=== PATIENT | female | born 1945 | race African-American/Black ===

== ENCOUNTER 2017-06-05 20:17 | Emergency (ER) | payer MEDICARE, SELFPAY ==
[2017-06-05] MEDS ORDERED: Ibuprofen 800 MG TAB ONE (21:27)
== END 2017-06-05 22:29 | disposition home or self-care (01) ==
LOC: ERS 20:17
DX: J06.9 Acute upper respiratory infection, unspecified (principal); I10 Essential (primary) hypertension; G43.909 Migraine, unspecified, not intractable, without status migrainosus
CPT/HCPCS: 87081; 87430; 99283

== ENCOUNTER 2017-10-02 14:23 | Emergency (ER) | payer SELFPAY ==
--- NOTE | 2017-10-02 15:21 | RAD ---
RIGHT FEMUR 2 VIEWS: HISTORY: Fall. Right leg injury. FINDINGS: Osteoarthritis right hip. No acute fracture, dislocation, or aggressive osseous erosions. IMPRESSION: Right hip osteoarthritis. No acute osseous abnormalities are demonstrated. POS: VANNESA
== END 2017-10-02 15:21 | disposition home or self-care (01) ==
LOC: ERS 14:23
DX: S70.11XA Contusion of right thigh, initial encounter (principal); I10 Essential (primary) hypertension; G43.909 Migraine, unspecified, not intractable, without status migrainosus; Z79.82 Long term (current) use of aspirin; W18.30XA Fall on same level, unspecified, initial encounter; Y93.01 Activity, walking, marching and hiking

== ENCOUNTER 2017-10-04 11:38 | Emergency (ER) | payer MEDICARE, SELFPAY ==
[2017-10-04 12:01] LABS: #Basophils 0.1 thou/uL (0.0-0.2); #Eosinphils 0.1 thou/uL (0.0-0.7); #Lymphocytes 1.6 thou/uL (1.20-3.40); #Monocytes 0.5 thou/uL (0.11-0.59); #Neutrophils 2.6 thou/uL (1.40-6.50); %Basophils 1.9 % (0.0-1.0); %Eosinophils 1.9 % (0.0-10.0); %Lymphocytes 32.5 % (21.0-51.0); %Monocytes 9.7 % (0.0-10.0); %Neutrophils 53.9 % (42.0-75.0); Hemoglobin 11.5 g/dL (12.0-16.0); Mean Corpuscular HGB CONC 32.3 g/dL (32.0-36.0); Mean Corpuscular Hemoglobin 29.5 pg (27.0-31.0); Mean Corpuscular Volume 91.4 fl (81.0-99.0); Mean Platelet Volume 8.8 fL (7.4-10.4); Platelet Count 217 thou/uL (130-400); RBC Distribution Width 11.6 % (11.5-14.5); Red Blood Cell (RBC) Count 3.91 mill/uL (4.20-5.40); White Blood Cell (WBC) Count 4.9 thou/uL (4.8-10.8)
[2017-10-04] MEDS ORDERED: Ketorolac Tromethamine 60 MG/2 ML VIAL ONE (12:05)
[2017-10-04 12:29] LABS: ALT (SGPT) 9 U/L (8-55); AST (SGOT) 19 U/L (5-34); Albumin 3.9 g/dL (3.4-4.8); Alkaline Phosphatase 97 U/L (40-150); Anion Gap 10 mmol/L (10-20); BUN (Urea Nitrogen) 16 mg/dL (9.8-20.1); Bilirubin, Total 0.3 mg/dL (0.2-1.2); Calc. Creatinine Clearance 0 mL/min (70-130); Calcium 8.8 mg/dL (7.8-10.44); Carbon Dioxide 24 mmol/L (23-31); Chloride 109 mmol/L (98-107); Estimated GFR-MDRD 50; Globulin 3.4 g/dL (2.4-3.5); Glucose 89 mg/dL (80-115); Potassium 4.1 mmol/L (3.5-5.1); Protein, Total 7.3 g/dL (6.0-8.3); Sodium 139 mmol/L (136-145)
[2017-10-04 13:02] LABS: Bilirubin Negative (Negative); Blood, Urine Negative (Negative); Clarity CLOUDY (Clear); Glucose, Urine (Dipstick) Negative (Negative); Leukocyte Large (Negative); Nitrite Negative (Negative); Protein, Urine (Dipstick) Trace mg/dL (Neg-Trace); Specific Gravity, Urine 1.013 (1.002-1.036)
[2017-10-04 13:04] LABS: Bacteria/HPF 1+ HPF (None Seen); Hyaline Casts/LPF 0-3 HYALINE CAST LPF (0-3 Hyaline); Pathc Cast-AUWi Flag 1.01 (0-2.49); RBC/HPF 0-3 HPF (0-3)
== END 2017-10-04 13:25 | disposition home or self-care (01) ==
LOC: ERS 11:38
DX: N39.0 Urinary tract infection, site not specified (principal); I10 Essential (primary) hypertension; G43.909 Migraine, unspecified, not intractable, without status migrainosus; Z79.82 Long term (current) use of aspirin
CPT/HCPCS: 36415; 80053; 81003; 81015; 85025; 87086; 96372; J1885

== ENCOUNTER 2018-08-04 15:50 | Emergency (ER) | payer MEDICARE | END 2018-08-04 16:10 | disposition left against medical advice (07) | LOC: ERS 15:50 | DX: Z53.21 Procedure and treatment not carried out due to patient leaving prior to being seen by health care provider (principal) ==

== ENCOUNTER 2019-04-18 14:02 | Emergency (ER) | payer MEDICARE ==
[2019-04-18 15:35] LABS: Bilirubin Negative (Negative); Blood, Urine Negative (Negative); Clarity Clear (Clear); Glucose, Urine (Dipstick) Normal (Negative); Leukocyte 500 Leu/uL (Negative); Nitrite Negative (Negative); Protein, Urine (Dipstick) 30 mg/dL (Neg-Trace); RBC/HPF 0-3 HPF (0-3); Urobilinogen Normal mg/dL (Less than 2)
[2019-04-18 15:37] LABS: Bacteria/HPF 1+ HPF (None Seen)
--- NOTE | 2019-04-18 15:45 | RAD ---
XR Chest Pa Lat STANDARD HISTORY: Cough. COMPARISON: 05/11/2015 study. FINDINGS: Heart size and mediastinum are within normal limits. There is evidence of old granulomatous disease. There are arthritic changes of the spine and a mild scoliosis. IMPRESSION: No active intrathoracic disease.
[2019-04-18] MEDS ORDERED: Lidocaine Viscous Sol 2% 15 ml UD Cup ONE (16:05)
[2019-04-18] MEDS ORDERED: Mag-Al 1200 mg/1200 mg/30 ML UDCUP ONE (16:05)
[2019-04-18] MEDS ORDERED: Ondansetron PF 4 MG/2 ML Vial ONE (16:05)
[2019-04-18 16:41] LABS: Anion Gap 16 mmol/L (10-20); BUN (Urea Nitrogen) 22 mg/dL (9.8-20.1); Calc. Creatinine Clearance 0 mL/min (70-130); Calcium 8.8 mg/dL (7.8-10.44); Carbon Dioxide 21 mmol/L (23-31); Chloride 109 mmol/L (98-107); Estimated GFR-MDRD 35; Glucose 91 mg/dL (83-110); Potassium 4.4 mmol/L (3.5-5.1); Sodium 142 mmol/L (136-145)
[2019-04-18 16:49] LABS: Eosinophils 2 % (0-10); Hemoglobin 10.4 g/dL (12.0-16.0); Lymphocytes 18 % (21-51); MDiff Complete? YES; Mean Corpuscular HGB CONC 33.7 g/dL (32.0-36.0); Mean Corpuscular Hemoglobin 29.7 pg (27.0-31.0); Mean Corpuscular Volume 88.3 fL (78.0-98.0); Mean Platelet Volume 9.2 fL (7.4-10.4); Monocytes 8 % (0-10); Neutrophil 72 % (42-75); Platelet Count 246 thou/uL (130-400); Platelet Morphology Comment Appears Adequate; RBC Morphology Normal; Red Blood Cell (RBC) Count 3.49 mill/uL (4.20-5.40); Vacuoles SLIGHT; White Blood Cell (WBC) Count 6.9 thou/uL (4.8-10.8)
== END 2019-04-18 17:55 | disposition home or self-care (01) ==
LOC: ERS 14:02
DX: N39.0 Urinary tract infection, site not specified (principal); R11.2 Nausea with vomiting, unspecified; I10 Essential (primary) hypertension; G43.909 Migraine, unspecified, not intractable, without status migrainosus; Z79.899 Other long term (current) drug therapy
CPT/HCPCS: 71046; 80048; 81003; 81015; 85025; 93005; 96374; J2405

== ENCOUNTER 2019-04-29 14:08 | Emergency (ER) | payer MEDICARE ==
[2019-04-29 15:05] LABS: ALT (SGPT) 21 U/L (8-55); AST (SGOT) 21 U/L (5-34); Albumin 4.1 g/dL (3.4-4.8); Alkaline Phosphatase 85 U/L (40-110); Anion Gap 19 mmol/L (10-20); BUN (Urea Nitrogen) 27 mg/dL (9.8-20.1); Bilirubin, Total 0.3 mg/dL (0.2-1.2); CK (CPK) 44 U/L (29-168); Calc. Creatinine Clearance 0 mL/min (70-130); Calcium 9.2 mg/dL (7.8-10.44); Carbon Dioxide 20 mmol/L (23-31); Chloride 107 mmol/L (98-107); Estimated GFR-MDRD 22; Globulin 3.4 g/dL (2.4-3.5); Glucose 109 mg/dL (83-110); Potassium 4.3 mmol/L (3.5-5.1); Protein, Total 7.5 g/dL (6.0-8.3); Sodium 142 mmol/L (136-145)
[2019-04-29 15:06] LABS: #Lymphocytes 1.6 thou/uL (1.20-3.40); #Monocytes 0.8 thou/uL (0.11-0.59); #Neutrophils 5.4 thou/uL (1.40-6.50); %Basophils 0.3 % (0.0-1.0); %Eosinophils 0.3 % (0.0-10.0); %Lymphocytes 19.9 % (21.0-51.0); %Monocytes 9.9 % (0.0-10.0); %Neutrophils 69.6 % (42.0-75.0); Hemoglobin 11.3 g/dL (12.0-16.0); Mean Corpuscular HGB CONC 32.7 g/dL (32.0-36.0); Mean Corpuscular Volume 88.6 fL (78.0-98.0); Mean Platelet Volume 9.3 fL (7.4-10.4); Platelet Count 284 thou/uL (130-400); RBC Distribution Width 11.5 % (11.5-14.5); White Blood Cell (WBC) Count 7.8 thou/uL (4.8-10.8)
[2019-04-29] MEDS ORDERED: Fluconazole 100 MG TAB PO SCH (15:30)
== END 2019-04-29 16:13 | disposition home or self-care (01) ==
LOC: ERS 14:08
DX: B37.0 Candidal stomatitis (principal); I10 Essential (primary) hypertension; G43.909 Migraine, unspecified, not intractable, without status migrainosus; Z79.899 Other long term (current) drug therapy
CPT/HCPCS: 36415; 80053; 82550; 84484; 85025; 93005; 96360

== ENCOUNTER 2019-05-07 08:57 | Observation (INO) | payer MEDICARE ==
[2019-05-07 09:50] LABS: #Lymphocytes 1.2 thou/uL (1.20-3.40); #Monocytes 0.5 thou/uL (0.11-0.59); #Neutrophils 5.4 thou/uL (1.40-6.50); %Basophils 0.5 % (0.0-1.0); %Eosinophils 0.4 % (0.0-10.0); %Lymphocytes 16.9 % (21.0-51.0); %Monocytes 7.2 % (0.0-10.0); Hemoglobin 11.1 g/dL (12.0-16.0); Mean Corpuscular HGB CONC 32.7 g/dL (32.0-36.0); Mean Corpuscular Hemoglobin 29.2 pg (27.0-31.0); Mean Corpuscular Volume 89.4 fL (78.0-98.0); Mean Platelet Volume 8.8 fL (7.4-10.4); Platelet Count 255 thou/uL (130-400); RBC Distribution Width 11.3 % (11.5-14.5); White Blood Cell (WBC) Count 7.2 thou/uL (4.8-10.8)
[2019-05-07 10:07] LABS: ALT (SGPT) 79 U/L (8-55); AST (SGOT) 39 U/L (5-34); Albumin 4.1 g/dL (3.4-4.8); Alkaline Phosphatase 97 U/L (40-110); Anion Gap 16 mmol/L (10-20); BUN (Urea Nitrogen) 17 mg/dL (9.8-20.1); Bilirubin, Total 0.4 mg/dL (0.2-1.2); CK (CPK) 47 U/L (29-168); Calc. Creatinine Clearance 0 mL/min (70-130); Calcium 9.5 mg/dL (7.8-10.44); Carbon Dioxide 23 mmol/L (23-31); Chloride 105 mmol/L (98-107); Estimated GFR-MDRD 33; Globulin 3.7 g/dL (2.4-3.5); Glucose 103 mg/dL (83-110); Potassium 3.6 mmol/L (3.5-5.1); Protein, Total 7.8 g/dL (6.0-8.3); Sodium 140 mmol/L (136-145)
[2019-05-07] MEDS ORDERED: Aspirin Chewable 81 MG TAB ONE (10:20)
--- NOTE | 2019-05-07 10:24 | RAD ---
RADIOGRAPH CHEST 1 VIEW: DATE: 05/07/2019 HISTORY: 73-year-old female with hypertension and rash. FINDINGS: There are no air space densities, pulmonary edema, pneumothorax, or cardiomegaly. The lateral costop hrenic angles are sharp. There is a moderate sized calcified granuloma in the right mid lung zone. Calcified right hilar nodes . This combination represents a Ranke complex. No interval change overall since 07/27/2013. IMPRESSION: No acute cardiopulmonary findings. jn [] POS: OFF
[2019-05-07 10:28] LABS: CKMB 0.7 ng/mL (0-6.6)
[2019-05-07] MEDS ORDERED: hydrALAZINE 20 MG/ML VIAL SLOW IVP PRN (12:35)
[2019-05-07] MEDS ORDERED: Acetaminophen 325 MG TAB PO PRN (12:35)
[2019-05-07 12:59] VITALS: BMI 19.5
[2019-05-07 13:43] LABS: Troponin I Less than 0.010 ng/mL (< 0.028)
[2019-05-07 13:57] LABS: Free T4 (Free Thyroxine) 1.38 ng/dL (0.70-1.48)
[2019-05-07 13:59] LABS: HBSAg Index 0.32 S/CO (0-0.99); HIV (1/2) Antibody/Antigen Non-Reactive (NonReactive); HIV 1/2 INDEX 0.11 S/CO (<1.00); Hep A IgM AB Non-Reactive (NonReactive); Hep A IgM S/CO 0.41 S/CO (0-0.79); Hep B Surf Ag Non-Reactive S/CO (NonReactive); Hep C IgG Ab Non-Reactive (NonReactive); Hep C Index 0.16 S/CO (0-0.79); Hepatitis B Core IgM Abs Non-Reactive (NonReactive)
--- NOTE | 2019-05-07 15:09 | HP ---
PRIMARY CARE PHYSICIAN: The patient currently does not have a primary care physician. CHIEF COMPLAINT: "I'm just feeling bad and I've pain in my right shoulder and I just can't get rid of this thrush." HISTORY OF PRESENT ILLNESS: Ms. Jewell is a very pleasant 73-year-old female, who has a history of hypertension. She says that shortly after she stopped working and slightly around that same time, she "just has been" going down. She notices that she has had this thrush for over a month. She denies any burning or pain in her tongue, but she has gone to Urgent Care, a few times has been using nystatin, but it just will not "go away." She also has no appetite to eat. She says she has lost at least 10 pounds over the last few months. She says that when she sees food, she initially gets a bit hungry, but then after a while she does not have an appetite to eat. She says it does not hurt and she does not have any dysphagia. She denies any pain when she eats, but she does have a low-grade nausea both in the morning and in the evening. She says that she has only been able to eat like some fruit and drink juices, but otherwise no other complaints. She denies any change in her bowels. No diarrhea. No loose stools. She denies any fevers or chills. No blood in the stool and no hemoptysis. The patient has an occasional cough, which is productive of some clear sputum. She denies any unusual rash. No hair loss, etc. The patient also complains of pain in her right shoulder. It is worse when she lifts her arm. If she lays her arm flat and does not move it, then she does not have pain. She denies any heavy lifting, no trauma, no falls, etc. REVIEW OF SYSTEMS: All systems were reviewed and are negative except for that mentioned in the History of Present Illness. PAST MEDICAL HISTORY: Significant for hypertension as well as migraines. PAST SURGICAL HISTORY: She has had a hysterectomy. ALLERGIES: TO VALIUM AND SULFA, WHICH MAKES HER SICK. SOCIAL HISTORY: She is . She is a nonsmoker and nondrinker. She denies any drug use. She has 3 daughters and she worked at [employer] for over 40 years and recently quit in this past March. FAMILY HISTORY: Her mother had diabetes as well as heart disease. Dad had an aneurysm. Brother had diabetes and cancer as well as a brother had emphysema as well as heart disease. CURRENT MEDICATIONS: Include nystatin swish and swallow as well as amlodipine 5 mg daily. PHYSICAL EXAMINATION: GENERAL: She is alert and oriented. She does appear chronically fatigued and appears to be chronically ill in appearance. She is well developed and a bit thin. VITAL SIGNS: The blood pressure was 133/69, heart rate 87, respiratory rate of 16, and temperature is 98. HEENT: Her pupils are equal, round, and reactive. Extraocular muscles are intact. Sclerae are anicteric. Throat; she did have some thrush on the tongue, but no erythema at the tongue base. She has poor dentition. No erythema or exudates. NECK: There is no adenopathy. No bruits. LUNGS: Clear to auscultation. There are no wheezing, no rales, no rhonchi. CARDIOVASCULAR: She has a normal S1 and S2. There is no S3 or S4. She did have a grade slight 2/6 systolic murmur at the lower left sternal border radiating into the axilla. ABDOMEN: Soft. She did have some mild epigastric tenderness. There is no rebound, no guarding. No organomegaly. EXTREMITIES: There is no calf tenderness. No joint effusions and no skin lesions that are visible. .NEUROLOGICAL: The exam is grossly nonfocal. LABORATORY RESULTS: Her sodium is 140, potassium 3.6, chloride is 105, CO2 is 23, BUN of 17, creatinine 1.8, glucose is 103, AST is 39, and ALT is 79. Troponin is 0.049. The white blood cell count is 7.2, hemoglobin 11.1, hematocrit is 34, and platelet count is 255. On her chest x-ray, she had a calcified granuloma in the right mid lung field, but otherwise her heart size is normal and there are no infiltrates or effusions. ASSESSMENT AND PLAN: 1. This is a pleasant 73-year-old female, who has a chronically-ill appearance, who complains of what sounds like essentially the dwindles, poor oral intake and shoulder pain as well as weight loss. She will be placed in observation with regard to the shoulder pain. We will get an x-ray of her shoulder. I suspect she may have some mild arthritis there and this can be treated symptomatically. There is no decrease in her range of motion and she had only just some mild crepitus. 2. Weight loss and poor oral intake. Her symptoms are very of vague and likely will need continued workup in the outpatient setting, but while she is here, we will go ahead and get a thyroid panel, ABBIE screen, and double-stranded DNA and a CT scan of her abdomen, noncontrast, giving her renal function and I have recommended that she follow up with her primary care physician and get the colonoscopy that had previously been recommended as well as an esophagogastroduodenoscopy. We will also check her iron studies and hepatitis panel as well as human immunodeficiency virus screen. Otherwise, further recommendations to follow. Job ID: [id number]
--- NOTE | 2019-05-07 15:38 | RAD ---
RADIOGRAPH RIGHT SHOULDER 3 VIEWS: Date: 05/07/2019 HISTORY: 73-year-old female with right shoulder pain. FINDINGS: Shallow chronic cortical defect at lateral aspect of humeral head. No fracture or dislocation. No DJD identified at glenohumeral joint. Mild to moderate DJD at AC joint. IMPRESSION: No acute fracture. POS: OFF
--- NOTE | 2019-05-07 16:26 | CT ---
CT Abdomen Pelvis WO Con 05/07/2019 12:00 AM HISTORY: Abdominal pain and weight loss. Patient reports epigastric abdominal pain and nausea/vomiting COMPARISON: 04/01/2014 Technique: Multiple contiguous axial CT images are obtained through the abdomen and pelvis without IV contrast. Coronal reformats are provided. FINDINGS: This examination is limited for the evaluation of solid organs and vascular structures due to the lac k of intravenous contrast. Lower Chest: within normal limits. Abdomen: Liver: Grossly normal non-enhanced CT appearance. Gallbladder: Within normal limits for CT imaging. Pancreas: Grossly normal nonenhanced CT appearance. Spleen: Granulomata. Adrenals: Grossly normal nonenhanced CT appearance. Kidneys: Again noted is atrophy of the right kidney, but the degree of atrophy has increased when com pared to prior study in 2013. No discrete mass is seen on nonenhanced CT images, but there is a lobulated contour involving the junction of the midportion and inferior pole left kidney posterolater ally which is more conspicuous than on the prior exam. This may represent renal contour in this region, but a lesion cannot be entirely excluded. There is no hydronephrosis or renal calculus seen b ilaterally. Ureters: No ureteral calculus is seen.. Pelvis: Urinary bladder: within normal limits. Reproductive Organs: Evidence of hysterectomy. Lymph Nodes: No enlarged lymph nodes. Bowel: Moderate amount retained fecal material seen throughout the colon. Loops of small bowel are no rmal in caliber Appendix: The appendix is normal in caliber. Peritoneum: No free fluid, free air, or fluid collection. Retroperitoneum: within normal limits. Vessels: Vascular calcifications are seen in the abdominal aorta and involving the iliac arteries.. Abdominal Wall: within normal limits. Bones: Degenerative changes are seen in the lumbar spine. IMPRESSION: 1. Contour abnormality involving the junction of midportion and inferior pole left kidney posterolate rally. This is probably related to the renal contour, but this is different when compared to prior exam and a lesion in this region cannot be entirely excluded. Follow-up renal sonogram is recommended .. 2. Atrophy right kidney, and the degree of atrophy appears mildly increased. 3. No renal or ureteral calculi are seen bilaterally. 4. Constipation. 5. Hysterectomy
[2019-05-07 17:43] LABS: Troponin I Less than 0.010 ng/mL (< 0.028)
[2019-05-07] MEDS ORDERED: Ondansetron PF 4 MG/2 ML Vial IVP PRN (22:14)
[2019-05-07] MEDS ORDERED: Ondansetron ODT 4 MG TAB PO PRN (22:14)
--- NOTE | 2019-05-07 23:53 | CON ---
DATE OF CONSULTATION: HISTORY OF PRESENT ILLNESS: Irma Jewell is a 73-year-old black female, who is admitted with decreased oral intake and weight loss. She has been found to have narrow complex tachycardia while on telemetry with a rate of 140 per minute and 170 per minute. She does state that since her 30s, she has had episodes where she feels her heart beating very rapidly. These episodes last for 1-2 hours at a time. She has continued to have those episodes from her 30s until now. With the 2 episodes today, she was aware of her heart beating rapidly. She denies any chest discomfort or shortness of breath. PAST MEDICAL HISTORY: Hypertension and history of migraines. PAST SURGICAL HISTORY: Hysterectomy. MEDICATIONS: 1. Nystatin for presumed thrush. 2. Amlodipine 5 mg q.a.m. ALLERGIES: VALIUM AND SULFA. SOCIAL HISTORY: She does not smoke or drink. She retired after working 40 years at [employer]. REVIEW OF SYSTEMS: A 10-point review of systems except as noted above is unremarkable 143/63, pulse of 86. HEENT PERRL. NECK: Supple. CHEST: Clear. CARDIAC: S1 and S2 normal without any S3, S4 or murmurs. ABDOMEN: Normal bowel sounds without tenderness or organomegaly. EXTREMITIES: Revealed no clubbing, cyanosis, or edema. NEUROLOGIC: Grossly intact. LABORATORY DATA: EKG revealed normal sinus rhythm, possible left atrial enlargement. Hemoglobin 11.1, hematocrit 34.0, white count 7200, platelets 255, 000. Sodium 140, potassium 3.6, chloride 105, carbon dioxide 23, BUN 17, creatinine 1.81. AST 39, ALT 79. Troponin I 0.049. TSH is low at 0.0043. However, T4 is normal. IMPRESSION: 1. Questionable supraventricular tachycardia vs sinus tachycardia vs atrial tachycardia, which historically sounds as if she has had this since her 30s. 2. Hypertension. 3. Chronic kidney disease. 4. Decreased p.o. intake and weight loss. PLAN: Amlodipine will be discontinued instead she will be placed on Cardizem 180 CD q.a.m. and given 60 mg of Cardizem tonight. Electrophysiology will be consulted. She will also undergo echocardiography. Job ID: [id number] MTDD
[2019-05-08 05:15] LABS: #Lymphocytes 1.4 thou/uL (1.20-3.40); #Monocytes 0.7 thou/uL (0.11-0.59); #Neutrophils 4.7 thou/uL (1.40-6.50); %Basophils 0.2 % (0.0-1.0); %Eosinophils 0.7 % (0.0-10.0); %Lymphocytes 20.7 % (21.0-51.0); %Monocytes 10.7 % (0.0-10.0); %Neutrophils 67.9 % (42.0-75.0); Hemoglobin 9.9 g/dL (12.0-16.0); Mean Corpuscular HGB CONC 32.4 g/dL (32.0-36.0); Mean Corpuscular Volume 89.5 fL (78.0-98.0); Mean Platelet Volume 9.5 fL (7.4-10.4); Platelet Count 225 thou/uL (130-400); RBC Distribution Width 11.5 % (11.5-14.5); White Blood Cell (WBC) Count 6.9 thou/uL (4.8-10.8)
[2019-05-08 05:26] LABS: Anion Gap 12 mmol/L (10-20); BUN (Urea Nitrogen) 17 mg/dL (9.8-20.1); Calc. Creatinine Clearance 25 mL/min (70-130); Calcium 8.8 mg/dL (7.8-10.44); Carbon Dioxide 26 mmol/L (23-31); Chloride 108 mmol/L (98-107); Estimated GFR-MDRD 38; Glucose 100 mg/dL (83-110); Potassium 3.8 mmol/L (3.5-5.1); Sodium 142 mmol/L (136-145)
[2019-05-08 08:15] LABS: Reticulocyte Count 1.2 % (0.5-1.5)
[2019-05-08 08:36] LABS: Iron 42 ug/dL (50-170); Iron Binding Capacity, Total 183 mcg/dL (265-497)
[2019-05-08] MEDS: Enoxaparin Sodium 30 MG/0.3 ML SYRINGE SC SCH (09:17)
[2019-05-08 10:59] LABS: ANA Symphony (Qualitative) Negative (Negative); ANA Symphony (Quantitative) 0.1 Ratio (< 0.7 Negative); dsDNA IgG Antibody 0.6 IU/mL (<10 Negative)
--- NOTE | 2019-05-08 12:43 | PDOC.HOSPP ---
- Subjective Encounter Date: 05/08/19 Encounter Time: 12:42 Subjective: Ms. Jewell was seen today in follow-up of shoulder pain and poor oral intake. She does not have any new complaints. She is about to eat lunch. - Objective Vital Signs & Weight: Vital Signs (12 hours) Temp Pulse Resp BP BP BP BP 05/08/19 11:00 98.6 F 84 16 150/66 H 146/66 H 05/08/19 07:38 98.3 F 75 16 144/63 H 05/08/19 03:35 98.4 F 86 15 143/65 H BP Pulse Ox 05/08/19 11:00 118/58 L 100 05/08/19 07:38 100 05/08/19 03:35 100 Weight Weight 110 lb 9.6 oz I&O: 05/07/19 05/08/19 05/09/19 06:59 06:59 06:59 Intake Total 1160 Balance 1160 Result Diagrams: 05/08/19 04:34 05/08/19 04:34 Hospitalist ROS - Medication Medications: Active Medications Generic Name Dose Route Start Last Admin Trade Name Freq PRN Reason Stop Dose Admin Diltiazem HCl 180 mg 05/08/19 09:00 05/08/19 09:17 Cardizem Cd PO 180 mg DAILY TRACEY Administration Enoxaparin Sodium 30 mg 05/08/19 09:00 05/08/19 09:17 Lovenox SC 30 mg 0900 TRACEY Administration Ondansetron HCl 4 mg 05/07/19 22:14 05/08/19 03:35 Zofran Odt PO 4 mg Q6H PRN Administration Nausea/Vomiting - Exam Eye: PERRL, anicteric sclera Heart: RRR, no murmur, no gallops, no rubs, normal peripheral pulses Respiratory: CTAB, no wheezes, no rales, no ronchi, normal chest expansion, no tachypnea, normal percussion Gastrointestinal: soft, non-tender, non-distended, normal bowel sounds, no palpable masses, no hepatomegaly Extremities: no cyanosis, no clubbing, no edema Hosp A/P (1) Nausea Code(s): R11.0 - NAUSEA Status: Acute (2) Anemia, chronic disease Code(s): D63.8 - ANEMIA IN OTHER CHRONIC DISEASES CLASSIFIED ELSEWHERE Status : Chronic (3) Weight loss Status: Chronic (4) SVT (supraventricular tachycardia) Code(s): I47.1 - SUPRAVENTRICULAR TACHYCARDIA Status: Acute - Plan * Weight loss- ? etiology- CT scan was essentially unremarkable * Will follow-up with the renal ultrasound * I recommend outpatient EGD and Colonoscopy * Follow-up with ABBIE screen as outpatient * Right shoulder pain- likely osteoarthritis * Anemia chronic disease * SVT- continue rate control with Cardizem * Hopefully home this afternoon if she is able to keep food down
--- NOTE | 2019-05-08 13:23 | ULT ---
US Renal Bilateral STANDARD: 05/08/2019 12:42 PM CLINICAL HISTORY: Abnormal left kidney on CT. STUDY: Renal ultrasound COMPARISON: CT abdomen/pelvis 05/07/2019 FINDINGS: Right kidney: Echogenicity: Normal. Masses/cysts: None. Hydronephrosis: None. Calcifications: None. Length: 5.7 cm Left kidney: Echogenicity: Normal. Masses/cysts: None. Hydronephrosis: None. Calcifications: None. Length: 9.4 cm Limited visualization of the urinary bladder is unremarkable. IMPRESSION: Small right kidney. No left renal mass is seen.
[2019-05-08] MEDS ORDERED: Senokot 8.6 MG TAB PO PRN ×2 (20:49→20:50)
[2019-05-09] MEDS: Enoxaparin Sodium 30 MG/0.3 ML SYRINGE SC SCH (08:30)
[2019-05-09 11:53] VITALS: BP 145/65; TEMP 97.4
--- NOTE | 2019-05-09 12:35 | PDOC.HOSPP ---
- Subjective Encounter Date: 05/09/19 Encounter Time: 12:34 Subjective: Ms. Jewell was seen today in follow-up of right shoulder pain, and poor appetite. She has been able to take in the supplements, as well as eat some yogart. No new complaints. - Objective Vital Signs & Weight: Vital Signs (12 hours) Temp Pulse Resp BP BP Pulse Ox 05/09/19 11:36 97.4 F L 89 16 145/65 H 100 05/09/19 10:04 100 05/09/19 07:42 97.8 F 72 16 137/61 100 05/09/19 04:15 98.2 F 86 16 133/63 100 Weight Admit Weight 110 lb 9.6 oz Weight 110 lb 9.6 oz I&O: 05/08/19 05/09/19 05/10/19 06:59 06:59 06:59 Intake Total 1160 1200 417 Balance 1160 1200 417 Result Diagrams: 05/08/19 04:34 05/08/19 04:34 Hospitalist ROS - Medication Medications: Active Medications Generic Name Dose Route Start Last Admin Trade Name Freq PRN Reason Stop Dose Admin Diltiazem HCl 180 mg 05/08/19 09:00 05/09/19 08:30 Cardizem Cd PO 180 mg DAILY TRACEY Administration Enoxaparin Sodium 30 mg 05/08/19 09:00 05/09/19 08:30 Lovenox SC 30 mg 0900 TRACEY Administration Ondansetron HCl 4 mg 05/07/19 22:14 05/08/19 03:35 Zofran Odt PO 4 mg Q6H PRN Administration Nausea/Vomiting Senna 1 tab 05/08/19 20:50 05/08/19 21:11 Senokot PO 1 tab BIDPRN PRN Administration Constipation - Exam Eye: PERRL Heart: RRR, no murmur, no gallops, no rubs, normal peripheral pulses Respiratory: CTAB, no wheezes, no rales, no ronchi, normal chest expansion, no tachypnea, normal percussion Gastrointestinal: soft, non-tender, non-distended, normal bowel sounds, no palpable masses, no hepatomegaly Extremities: no cyanosis, no edema Hosp A/P (1) Nausea Code(s): R11.0 - NAUSEA Status: Acute (2) Anemia, chronic disease Code(s): D63.8 - ANEMIA IN OTHER CHRONIC DISEASES CLASSIFIED ELSEWHERE Status : Chronic (3) Weight loss Status: Chronic (4) SVT (supraventricular tachycardia) Code(s): I47.1 - SUPRAVENTRICULAR TACHYCARDIA Status: Acute - Plan * Weight loss- ? etiology- ABBIE and screen for auto-immune disorders was negative * Renal ultrasound results noted- no evidence of mass * Outpatient EGD and Colonoscopy recommended * SVT- continue rate control with Cardizem * Home later today
--- NOTE | 2019-05-09 13:40 | EKG ---
Test Reason : Blood Pressure : / mmHG Vent. Rate : 087 BPM Atrial Rate : 087 BPM P-R Int : 152 ms QRS Dur : 064 ms QT Int : 348 ms P-R-T Axes : 072 -12 071 degrees QTc Int : 418 ms Normal sinus rhythm Possible Left atrial enlargement Borderline ECG When compared with ECG of 18-APR-2019 15:49, (Unconfirmed) No significant change was found Confirmed by CARLOS PEREZ (2) on 05/09/2019 1:40:25 PM Referred By: SHIVAM Confirmed By:CARLOS PEREZ
--- NOTE | 2019-05-09 14:23 | PDOC.EP ---
- Subjective Date: 05/09/19 Time: 08:00 Interval History: follow up for narrow complex tachycardia patient feeling better with rehydration. Reports occasional palpitations No other cardiac concerns toda - Review of Systems Constitutional: denies: chills, fever, malaise, sweats, weakness Respiratory: denies: cough, shortness of breath, SOB with excertion, sputum, wheezing Cardiology: reports: palpitations. denies: chest pain, edema, light headedness , passing out Gastrointestinal: denies: abdominal pain, constipation, nausea, vomitting - Objective Allergies/Adverse Reactions: Allergies Allergy/AdvReac Type Severity Reaction Status Date / Time diazepam [From Valium] Allergy Verified 05/07/19 12:57 Sulfa (Sulfonamide Allergy Verified 05/07/19 12:57 Antibiotics) Current Medications Acetaminophen (Tylenol) 650 mg PO Q4H PRN PRN Reason: Headache/Fever/Mild Pain (1-3) Diltiazem HCl (Cardizem Cd) 180 mg PO DAILY [facility] Last Admin: 05/09/19 08:30 Dose: 180 mg Enoxaparin Sodium (Lovenox) 30 mg SC 0900 [facility] Last Admin: 05/09/19 08:30 Dose: 30 mg Hydralazine HCl (Apresoline) 10 mg SLOW IVP Q4H PRN PRN Reason: SBP > 180 and HR < 70 Ondansetron HCl (Zofran Odt) 4 mg PO Q6H PRN PRN Reason: Nausea/Vomiting Last Admin: 05/08/19 03:35 Dose: 4 mg Ondansetron HCl (Zofran) 4 mg IVP Q6H PRN PRN Reason: Nausea/Vomiting Senna (Senokot) 1 tab PO BIDPRN PRN PRN Reason: Constipation Last Admin: 05/08/19 21:11 Dose: 1 tab Senna (Senokot) 1 tab PO HSPRN PRN PRN Reason: Constipation Vital Signs & Weight: Vital Signs Temp Pulse Resp BP BP Pulse Ox 05/09/19 11:36 97.4 F L 89 16 145/65 H 100 05/09/19 10:04 100 05/09/19 07:42 97.8 F 72 16 137/61 100 05/09/19 04:15 98.2 F 86 16 133/63 100 Admit Weight 110 lb 9.6 oz Weight 110 lb 9.6 oz I/O: I/O 05/08/19 05/09/19 05/10/19 06:59 06:59 06:59 Intake Total 1160 1200 1257 Balance 1160 1200 1257 - Physical Exam General: alert & oriented x3, appears well, no apparent distress, speech clear, affect appropriate HEENT: mucus membranes moist, normocephaly Neck: supple neck, midline trachea, no JVD/HJR, no lymphadenopathy Cardiology: regular rate and rhythm, no murmur, PMI nondisplaced Lungs: clear to auscultation, normal breath sounds, no wheeze, rales, rhonchi Neurology: cranial nerve 2-12 intact, grossly intact, no lateralizing findings - Labs Result Diagrams: 05/08/19 04:34 05/08/19 04:34 - EKG Interpretation EKG shows: Sinus rhythm - Assessment/Plan Assessment/Plan: 1. Sinus rhythm/sinus tachycardia - less likely A Tach as P wave morphology and HI intervals are unchanged with tachy episodes. - agree with diltiazem for BP and HR management - alternatively BB if edema with CCB OK for DC by EP
--- NOTE | 2019-05-10 01:59 | DIS ---
DATE OF ADMISSION: 05/07/2019 DATE OF DISCHARGE: 05/09/2019 DISCHARGE DISPOSITION: Home. DISCHARGE DIAGNOSES: 1. Weight loss. 2. Chronic nausea. 3. Osteoarthritis of the shoulder. 4. Hypertension. 5. History of migraines. 6. Supraventricular tachycardia. DISCHARGE MEDICATIONS: 1. Cardizem CD 180 mg daily. 2. Nystatin swish and spit. PROCEDURES DONE DURING THE ADMISSION: The patient had a noncontrast CT scan of the abdomen and pelvis, which showed some irregularity of the contour of the left pole of the kidney posteriorly. There is an atrophic right kidney, evidence of hysterectomy as well as constipation. No renal stones seen. The patient had an echocardiogram, in which the ejection fraction was estimated at 55% to 60%. There was some impaired relaxation consistent with diastolic dysfunction and mild mitral regurgitation was present. The patient also had a renal ultrasound showing a small right kidney. There is no left renal mass seen. The patient also had ABBIE as well as [id number] DNA, which were negative. The patient had a hepatitis A, B, and C panel as well as HIV 1 and 2, which were negative. CODE STATUS: Full code. ALLERGIES: TO DIAZEPAM AND SULFA. HOSPITAL COURSE: Ms. Jewell is a pleasant 73-year-old female, who was admitted to the hospital with vague complaints of right shoulder pain, weight loss, and chronic nausea. She was placed in observation to help initiate the workup. CT scan of the abdomen and pelvis was done, which was negative for any obvious mass lesions. I did explain to the patient as well as her daughters, who were at the bedside that she would benefit from having an upper endoscopy as well as a colonoscopy based on her symptomatology, this can be done as an outpatient. She was also found to be anemic, which was most consistent with anemia of chronic disease with a slightly low iron level and a ferritin, which was normal. She had an episode of supraventricular tachycardia in the hospital, this was thought to be related to hypovolemia and dehydration. Her daughter, who is a nurse, said that she had a similar episode with an admission to the ER before. Cardiology as well as EP was consulted based on these findings and she was started on Cardizem to help with rate control. Hepatitis panel was done as well as HIV, which was negative and a screening for autoimmune disorder was also negative. Thyroid function tests were done, which were negative as well as her cardiac enzymes. It is possible that her symptoms could be related to depression at least with regard to her poor oral intake and this was discussed with family members as well. The patient plans to establish primary care physician in the community and will follow up in 1 to 2 weeks. Job ID: [id number]
--- NOTE | 2019-05-10 07:33 | CON ---
DATE OF CONSULTATION: 05/08/2019 Dictated by Jen Hogan PA-C, for Dany Aldana MD. REASON FOR CONSULTATION: Narrow complex tachycardia. HISTORY OF PRESENT ILLNESS: Ms. Jewell is a 73-year-old female, who was admitted with weight loss and decreased p.o. intake with significant dehydration. She is found to be in a narrow complex tachycardia at 140 beats per minute and occasionally up to 170 beats per minute. She endorsed palpitations and tachycardia episodes since her 30s, occasionally up to 1-2 hours at a time. She has been aware of her heart beating rapidly, but denied any associated nausea, vomiting, sweating, or chest pain. She denies any syncopal episodes. REVIEW OF SYSTEMS: Twelve-point review of systems is negative except that listed above in the HPI. PAST MEDICAL HISTORY: 1. Hypertension. 2. Migraines. 3. Palpitations. PAST SURGICAL HISTORY: Hysterectomy. MEDICATIONS: 1. Amlodipine 5 mg q.a.m. 2. Nystatin as directed for possible thrush. ALLERGIES: VALIUM AND SULFA. SOCIAL HISTORY: Denies alcohol, tobacco, or illicit drug use. She is retired after working at [employer] for 40 years. FAMILY HISTORY: Denies sudden cardiac or early-onset CAD. PHYSICAL EXAMINATION: VITAL SIGNS: Temperature 98.6, pulse 75, blood pressure 144/63, respirations 16, and oxygen 100% on room air. Orthostatic blood pressures were assessed and were negative, not significant. GENERAL: The patient is alert and oriented. Speech is clear. Affect is appropriate. She is in no apparent distress at time of the exam, resting comfortably. NECK: Supple without jugular venous distention. There is no lymphadenopathy. Carotids are without bruit. LUNGS: Clear to auscultation bilaterally without wheezes, crackles, or rhonchi. Respirations are even and unlabored. HEART: Rate is irregularly irregular with crisp S1 and S2. PMI is nondisplaced. ABDOMEN: Soft and nontender without palpable masses. EXTREMITIES: Warm and dry to touch without clubbing, cyanosis, or edema. NEUROLOGIC: Grossly intact and nonfocal. Gait was not assessed. DATABASE: Telemetry and EKG showed sinus rhythm with occasional sinus tachycardia. P waves and WA interval are unchanged with her sinus tachycardia episodes compared to her normal sinus rhythm. LABORATORY DATA: Hematology: Unremarkable other than some mild anemia, hemoglobin is 9.9. Chemistry: Creatinine 1.63. Troponins are negative. Magnesium 1.7. TSH 0.0043 and free T4 of 1.38. Echocardiogram on 05/08/2019, EF 55% to 60%, normal-sized left atrium, mild LVH, suggestive of diastolic dysfunction, mild mitral regurgitation. IMPRESSION: 1. Reactive sinus tachycardia, possibly secondary to dehydration with nausea and vomiting, less likely an ectopic atrial tachycardia as P-wave morphology appears unchanged. 2. Dehydration secondary to decreased p.o. intake, nausea, and vomiting. PLAN AND RECOMMENDATIONS: I agree with the change from amlodipine to diltiazem for treating tachycardic episodes. Continue to monitor largely. I suspect she requires rehydration and to maintain adequate rehydration at home. So far, I do not see any telemetry tracings or EKGs that are suggestive of AVNRT or abnormal atrial arrhythmias. Thank you for allowing me to participate in the care of this patient. Job ID: [id number]
--- NOTE | 2019-05-12 14:20 | EKG ---
Test Reason : Blood Pressure : / mmHG Vent. Rate : 082 BPM Atrial Rate : 082 BPM P-R Int : 134 ms QRS Dur : 072 ms QT Int : 368 ms P-R-T Axes : 068 -19 069 degrees QTc Int : 429 ms Normal sinus rhythm Possible Left atrial enlargement Borderline ECG Confirmed by TALITA BRIGHT DO ([id number]), machine stemmer ROSELIA GALLAGHER ([id number]) on 05/12/2019 2:20:20 PM Referred By: Confirmed By:TALITA BRIGHT DO
== END 2019-05-09 15:57 | disposition home or self-care (01) ==
LOC: ERS 08:57 → 2SW 10:54
PROVIDERS: ADMIT Internal Medicine; ATTEND Internal Medicine
DX: M19.011 Primary osteoarthritis, right shoulder (principal); R11.0 Nausea; R63.3 Feeding difficulties; I47.1 Supraventricular tachycardia; E86.0 Dehydration; K59.00 Constipation, unspecified; I12.9 Hypertensive chronic kidney disease with stage 1 through stage 4 chronic kidney disease, or unspecified chronic kidney disease; N18.9 Chronic kidney disease, unspecified; D63.1 Anemia in chronic kidney disease; G43.909 Migraine, unspecified, not intractable, without status migrainosus; B37.0 Candidal stomatitis; R63.4 Abnormal weight loss; Z68.1 Body mass index [BMI] 19.9 or less, adult; Z79.899 Other long term (current) drug therapy; Z88.2 Allergy status to sulfonamides; Z88.8 Allergy status to other drugs, medicaments and biological substances
CPT/HCPCS: 71045; 73030; 74176; 76770; 80048; 80074; 82550; 82553; 82728; 83540; 83550; 83735; 84439; 84484 ×2; 85025; 85046; 86038; 86225; 87389; 93005; 93306; 96360; 96372 ×2; 99285; G0378 ×4; 36415; 80053; 84443; 93010; J1650; Q0162

== ENCOUNTER 2019-05-11 14:34 | Emergency (ER) | payer MEDICARE ==
[2019-05-11] MEDS ORDERED: Lidocaine Viscous Sol 2% 15 ml UD Cup ONE (15:20)
[2019-05-11] MEDS ORDERED: Lidocaine 2% PF 5 ML VIAL ONE (15:21)
[2019-05-11] MEDS ORDERED: Fleet Enema 133 ML BOT PR SCH (17:15)
== END 2019-05-11 19:09 | disposition home or self-care (01) ==
LOC: ERS 14:34
DX: K56.41 Fecal impaction (principal); I10 Essential (primary) hypertension; G43.909 Migraine, unspecified, not intractable, without status migrainosus; Z79.899 Other long term (current) drug therapy
CPT/HCPCS: 99283; J2001

== ENCOUNTER 2019-06-05 16:02 | Emergency (ER) | payer MEDICARE ==
[2019-06-05 17:14] LABS: #Eosinphils 0.1 thou/uL (0.0-0.7); #Lymphocytes 1.1 thou/uL (1.20-3.40); #Monocytes 0.5 thou/uL (0.11-0.59); #Neutrophils 4.8 thou/uL (1.40-6.50); %Basophils 0.2 % (0.0-1.0); %Lymphocytes 17.4 % (21.0-51.0); %Monocytes 7.6 % (0.0-10.0); %Neutrophils 73.8 % (42.0-75.0); Hemoglobin 10.6 g/dL (12.0-16.0); Mean Corpuscular HGB CONC 31.2 g/dL (32.0-36.0); Mean Corpuscular Hemoglobin 28.5 pg (27.0-31.0); Mean Corpuscular Volume 91.4 fL (78.0-98.0); Mean Platelet Volume 8.5 fL (7.4-10.4); Platelet Count 308 thou/uL (130-400); RBC Distribution Width 11.6 % (11.5-14.5); Red Blood Cell (RBC) Count 3.72 mill/uL (4.20-5.40); White Blood Cell (WBC) Count 6.6 thou/uL (4.8-10.8)
[2019-06-05] MEDS ORDERED: Ondansetron PF 4 MG/2 ML Vial ONE (17:28)
[2019-06-05 17:47] LABS: AST (SGOT) 24 U/L (5-34); Anion Gap 15 mmol/L (10-20); Bilirubin, Total 0.3 mg/dL (0.2-1.2); Calcium 9.2 mg/dL (7.8-10.44); Carbon Dioxide 26 mmol/L (23-31); Chloride 105 mmol/L (98-107); Potassium 3.8 mmol/L (3.5-5.1); Sodium 142 mmol/L (136-145)
[2019-06-05 17:52] LABS: ALT (SGPT) 33 U/L (8-55); Albumin 3.8 g/dL (3.4-4.8); Alkaline Phosphatase 94 U/L (40-110); BUN (Urea Nitrogen) 22 mg/dL (9.8-20.1); Calc. Creatinine Clearance 0 mL/min (70-130); Estimated GFR-MDRD 27; Globulin 3.3 g/dL (2.4-3.5); Glucose 113 mg/dL (83-110); Lipase 37 U/L (8-78); Protein, Total 7.1 g/dL (6.0-8.3)
[2019-06-05 18:15] LABS: Bilirubin Negative (Negative); Blood, Urine Negative (Negative); Clarity Clear (Clear); Glucose, Urine (Dipstick) Normal (Negative); Leukocyte 500 Leu/uL (Negative); Nitrite Negative (Negative); Protein, Urine (Dipstick) 30 mg/dL (Neg-Trace); Squamous Epithelial 0-3 HPF (0-3); Urobilinogen Normal mg/dL (Less than 2); WBC/HPF 21-50 HPF (0-3)
--- NOTE | 2019-06-05 18:18 | CT ---
CT OF THE ABDOMEN AND PELVIS WITHOUT IV CONTRAST INDICATION: Left-sided abdominal pain COMPARISON: CT the abdomen and pelvis without contrast dated May 07, 2019 FINDINGS: This examination is limited for the evaluation of solid organs and vascular structures due to the lac k of intravenous contrast. ABDOMEN: Lung bases: Clear Liver: No focal lesion. Gallbladder: Normal appearing. Pancreas: Normal. Adrenal glands: Normal. Spleen: Stable calcified granuloma Kidneys and ureters: Stable atrophy of the right kidney. No hydronephrosis, renal or ureteral calculu s. Vasculature: There are moderate vascular calcifications seen involving the visualized vasculature. Lymph nodes:No lymphadenopathy. Free fluid in abdomen:No free fluid is evident. PELVIS: Small and large bowel: Normal Appendix:Normal Bladder: Normal. Rectal and perirectal soft tissues:Normal. Reproductive structures: Surgically absent Free fluid in pelvis: No free fluid is evident. Lymphadenopathy pelvis: No lymphadenopathy is evident. Osseous structures: No acute osseous abnormality. No destructive osteolytic or osteoblastic lesion i s identified. There is scattered degenerative and osteoarthritic changes. Soft tissues:Normal. IMPRESSION: 1. No acute abnormality.
[2019-06-05 18:23] LABS: Bacteria/HPF 1+ HPF (None Seen)
== END 2019-06-05 19:28 | disposition home or self-care (01) ==
LOC: ERS 16:02
DX: N39.0 Urinary tract infection, site not specified (principal); R11.10 Vomiting, unspecified; I10 Essential (primary) hypertension
CPT/HCPCS: 36415; 74176; 80053; 81003; 81015; 83690; 84484; 85025; 96361; 96374; J2405

== ENCOUNTER 2019-06-11 10:58 | Emergency (ER) | payer MEDICARE ==
[2019-06-11] MEDS ORDERED: Morphine 4 MG/ML VIAL ONE (11:24)
[2019-06-11] MEDS ORDERED: Ondansetron PF 4 MG/2 ML Vial ONE (11:24)
[2019-06-11 11:39] LABS: Hemoglobin 11.7 g/dL (12.0-16.0); Mean Corpuscular HGB CONC 33.4 g/dL (32.0-36.0); Mean Corpuscular Volume 89.8 fL (78.0-98.0); Mean Platelet Volume 9.9 fL (7.4-10.4); Platelet Count 228 thou/uL (130-400); RBC Distribution Width 12.1 % (11.5-14.5); Red Blood Cell (RBC) Count 3.92 mill/uL (4.20-5.40); White Blood Cell (WBC) Count 5.8 thou/uL (4.8-10.8)
[2019-06-11 11:55] LABS: Band 2 % (5-11); Lymphocytes 13 % (21-51); MDiff Complete? YES; Monocytes 1 % (0-10); Neutrophil 84 % (42-75); RBC Morphology Normal
[2019-06-11 12:42] LABS: ALT (SGPT) 23 U/L (8-55); AST (SGOT) 25 U/L (5-34); Albumin 4.1 g/dL (3.4-4.8); Alkaline Phosphatase 94 U/L (40-110); Anion Gap 18 mmol/L (10-20); BUN (Urea Nitrogen) 18 mg/dL (9.8-20.1); Bilirubin, Total 0.5 mg/dL (0.2-1.2); Calc. Creatinine Clearance 0 mL/min (70-130); Calcium 9.8 mg/dL (7.8-10.44); Carbon Dioxide 23 mmol/L (23-31); Chloride 103 mmol/L (98-107); Estimated GFR-MDRD 24; Glucose 111 mg/dL (83-110); Lipase 68 U/L (8-78); Potassium 4.3 mmol/L (3.5-5.1); Protein, Total 8.1 g/dL (6.0-8.3); Sodium 140 mmol/L (136-145)
== END 2019-06-11 13:40 | disposition home or self-care (01) ==
LOC: ERS 10:58
DX: R10.30 Lower abdominal pain, unspecified (principal); R11.2 Nausea with vomiting, unspecified; I10 Essential (primary) hypertension; G43.909 Migraine, unspecified, not intractable, without status migrainosus; Z79.899 Other long term (current) drug therapy
CPT/HCPCS: 36415; 80053; 83690; 84484; 85025; 93005; 96361; 96374; J2270; J2405

== ENCOUNTER 2019-06-13 05:51 | Emergency (ER) | payer MEDICARE ==
[2019-06-13 07:18] LABS: #Basophils 0.1 thou/uL (0.0-0.2); #Eosinphils 0.1 thou/uL (0.0-0.7); #Lymphocytes 1.3 thou/uL (1.20-3.40); #Monocytes 0.6 thou/uL (0.11-0.59); #Neutrophils 3.9 thou/uL (1.40-6.50); %Eosinophils 1.2 % (0.0-10.0); %Lymphocytes 22.6 % (21.0-51.0); %Monocytes 9.5 % (0.0-10.0); %Neutrophils 65.7 % (42.0-75.0); Hemoglobin 10.4 g/dL (12.0-16.0); Mean Corpuscular HGB CONC 32.6 g/dL (32.0-36.0); Mean Corpuscular Hemoglobin 29.8 pg (27.0-31.0); Mean Corpuscular Volume 91.2 fL (78.0-98.0); Mean Platelet Volume 9.3 fL (7.4-10.4); Platelet Count 242 thou/uL (130-400); Red Blood Cell (RBC) Count 3.49 mill/uL (4.20-5.40); White Blood Cell (WBC) Count 5.9 thou/uL (4.8-10.8)
[2019-06-13 07:33] LABS: ALT (SGPT) 19 U/L (8-55); AST (SGOT) 24 U/L (5-34); Albumin 3.8 g/dL (3.4-4.8); Alkaline Phosphatase 82 U/L (40-110); Anion Gap 17 mmol/L (10-20); BUN (Urea Nitrogen) 13 mg/dL (9.8-20.1); Bilirubin, Total 0.5 mg/dL (0.2-1.2); Calc. Creatinine Clearance 0 mL/min (70-130); Calcium 9.4 mg/dL (7.8-10.44); Carbon Dioxide 20 mmol/L (23-31); Chloride 106 mmol/L (98-107); Estimated GFR-MDRD 26; Globulin 3.6 g/dL (2.4-3.5); Glucose 107 mg/dL (83-110); Lipase 46 U/L (8-78); Potassium 3.6 mmol/L (3.5-5.1); Protein, Total 7.4 g/dL (6.0-8.3); Sodium 139 mmol/L (136-145)
--- NOTE | 2019-06-13 08:31 | RAD ---
CHEST 1 VIEW: HISTORY: Cough. COMPARISON: 05/07/2019. FINDINGS: Heart size is normal. Old granulomatous disease. Nodular density is seen over the right lower lung zone favored to be a nipple shadow since it was not present on recent chest film of 05/07/2019. No co nfluent pneumonia, overt edema, or pleural effusion. IMPRESSION: No acute intrathoracic disease. Old granulomatous disease. Right nipple shadow. Atherosclerosis of the aorta. POS: [facility]
[2019-06-13 08:45] LABS: Bilirubin Negative (Negative); Blood, Urine Negative (Negative); Clarity Clear (Clear); Glucose, Urine (Dipstick) Normal (Negative); Leukocyte Negative Leu/uL (Negative); Nitrite Negative (Negative); Protein, Urine (Dipstick) 20 mg/dL (Neg-Trace)
== END 2019-06-13 09:30 | disposition home or self-care (01) ==
LOC: ERS 05:51
DX: I12.9 Hypertensive chronic kidney disease with stage 1 through stage 4 chronic kidney disease, or unspecified chronic kidney disease (principal); N18.9 Chronic kidney disease, unspecified; E86.0 Dehydration; R52 Pain, unspecified; G43.909 Migraine, unspecified, not intractable, without status migrainosus; Z79.899 Other long term (current) drug therapy
CPT/HCPCS: 36415; 71045; 80053; 81003; 83690; 85025; 93005; 96360

== ENCOUNTER 2019-06-15 13:13 | Outpatient (CLI) | payer MEDICARE ==
--- NOTE | 2019-06-15 14:01 | ULT ---
Bilateral renal ultrasound CLINICAL INDICATION: Right renal mass. COMPARISON: Ultrasound on 05/08/[address] abdomen on 06/05/2019 FINDINGS: Right kidney: Small in size with echogenic appearance. Right kidney measures 5.4 cm x 2.8 cm. No hydr onephrosis is seen. No obvious renal mass is identified. Right kidney has an overall stable appearance compared to prior study Left kidney: There is no evidence of a renal mass, renal calculus, or hydronephrosis. The left kidney measures 9.1 cm x 4.6 cm. Urinary bladder: Not imaged. Patient reportedly voided just prior to this exam. IMPRESSION: 1. Stable small echogenic right kidney without hydronephrosis. 2. Normal-appearing left kidney without hydronephrosis. 3. Nonvisualization the urinary bladder.
== END 2019-06-15 13:14 | disposition home or self-care (01) ==
LOC: BICULT 13:13
PROVIDERS: ATTEND Family Medicine
DX: N28.89 Other specified disorders of kidney and ureter (principal); R93.421 Abnormal radiologic findings on diagnostic imaging of right kidney
CPT/HCPCS: 76770

== ENCOUNTER 2019-06-29 08:15 | Emergency (ER) | payer MEDICARE ==
--- NOTE | 2019-06-29 09:05 | RAD ---
CHEST 1 VIEW: Date: 06/29/2019 HISTORY: Altered mental status. COMPARISON: 06/13/2019. FINDINGS: Heart size is normal. Right old granuloma calcifications. No confluent pneumonia, overt edema, or ple ural effusion. IMPRESSION: No acute intrathoracic disease. Stable from prior study. POS: [facility]
--- NOTE | 2019-06-29 09:07 | RAD ---
RIGHT HIP 3 VIEWS: Date: 06/29/2019 HISTORY: Fall. FINDINGS: The pelvic ring is intact without evidence of fracture. There are marked arthritic changes of the rig ht hip. Severe joint space narrowing. Subchondral cystic changes involving the acetabulum and femoral head with some developing flattening to the femoral head suggesting some developing osteonecrosis. T here are no signs of any fracture. IMPRESSION: Marked arthritic changes of the right hip. No evidence of fracture. POS: [facility]
[2019-06-29 09:18] LABS: #Eosinphils 0.1 thou/uL (0.0-0.7); #Monocytes 0.5 thou/uL (0.11-0.59); #Neutrophils 3.7 thou/uL (1.40-6.50); %Basophils 0.5 % (0.0-1.0); %Eosinophils 1.1 % (0.0-10.0); %Lymphocytes 18.9 % (21.0-51.0); %Monocytes 9.7 % (0.0-10.0); %Neutrophils 69.8 % (42.0-75.0); Mean Corpuscular HGB CONC 32.8 g/dL (32.0-36.0); Mean Corpuscular Hemoglobin 30.2 pg (27.0-31.0); Mean Corpuscular Volume 91.9 fL (78.0-98.0); Platelet Count 217 thou/uL (130-400); RBC Distribution Width 12.5 % (11.5-14.5); Red Blood Cell (RBC) Count 3.98 mill/uL (4.20-5.40); White Blood Cell (WBC) Count 5.2 thou/uL (4.8-10.8)
--- NOTE | 2019-06-29 09:19 | CT ---
CT HEAD WITHOUT IV CONTRAST COMPARISON: None HISTORY: Falling secondary to dizziness. Injury after fall. TECHNIQUE: Axial CT imaging at 5 mm intervals from vertex through skull base without contrast FINDINGS: Minimal scattered areas of diminished attenuation are seen in the periventricular and subcortical whi te matter which are nonspecific but likely reflective of mild chronic small vessel ischemic changes. There is no evidence of an acute infarction, hemorrhage, mass effect, or midline shift. Mild cerebral volume loss is present not unexpected for the patient's age. The ventricular system is normal in size, shape, and position. Visualized paranasal sinuses are clear. Osseous structures appear intact.Dense vascular calcifications are seen in the carotid siphons. IMPRESSION: 1. No acute intracranial abnormality demonstrated.
[2019-06-29 09:43] LABS: ALT (SGPT) 12 U/L (8-55); AST (SGOT) 22 U/L (5-34); Albumin 4.1 g/dL (3.4-4.8); Alkaline Phosphatase 71 U/L (40-110); Anion Gap 21 mmol/L (10-20); BUN (Urea Nitrogen) 29 mg/dL (9.8-20.1); Bilirubin, Total 0.5 mg/dL (0.2-1.2); CK (CPK) 54 U/L (29-168); Calc. Creatinine Clearance 0 mL/min (70-130); Calcium 9.6 mg/dL (7.8-10.44); Carbon Dioxide 20 mmol/L (23-31); Chloride 108 mmol/L (98-107); Estimated GFR-MDRD 29; Globulin 3.5 g/dL (2.4-3.5); Glucose 100 mg/dL (83-110); Lipase 58 U/L (8-78); Potassium 4.5 mmol/L (3.5-5.1); Protein, Total 7.6 g/dL (6.0-8.3); Sodium 144 mmol/L (136-145)
[2019-06-29 09:56] LABS: Bilirubin Negative (Negative); Blood, Urine Negative (Negative); Clarity Clear (Clear); Glucose, Urine (Dipstick) Normal (Negative); Leukocyte 250 Leu/uL (Negative); Nitrite Negative (Negative); Protein, Urine (Dipstick) 10 mg/dL (Neg-Trace); RBC/HPF 0-3 HPF (0-3); Urobilinogen Normal mg/dL (Less than 2)
[2019-06-29 10:07] LABS: Bacteria/HPF Rare-Few HPF (None Seen)
== END 2019-06-29 11:21 | disposition home or self-care (01) ==
LOC: ERS 08:15
DX: S70.01XA Contusion of right hip, initial encounter (principal); R42 Dizziness and giddiness; I10 Essential (primary) hypertension; G43.909 Migraine, unspecified, not intractable, without status migrainosus; Z79.899 Other long term (current) drug therapy; W01.198A Fall on same level from slipping, tripping and stumbling with subsequent striking against other object, initial encounter
CPT/HCPCS: 36415; 70450; 71045; 72170; 80053; 81003; 81015; 82550; 83690; 84484; 85025; 93005

== ENCOUNTER 2019-07-02 15:53 | Inpatient (IN) | payer MEDICARE ==
[2019-07-02 16:32] LABS: #Lymphocytes 1.2 thou/uL (1.20-3.40); #Monocytes 0.5 thou/uL (0.11-0.59); #Neutrophils 5.9 thou/uL (1.40-6.50); %Basophils 0.3 % (0.0-1.0); %Eosinophils 0.3 % (0.0-10.0); %Lymphocytes 15.8 % (21.0-51.0); %Monocytes 5.9 % (0.0-10.0); %Neutrophils 77.7 % (42.0-75.0); Hemoglobin 12.5 g/dL (12.0-16.0); Mean Corpuscular HGB CONC 32.8 g/dL (32.0-36.0); Mean Corpuscular Volume 91.6 fL (78.0-98.0); Mean Platelet Volume 10.7 fL (7.4-10.4); Platelet Count 228 thou/uL (130-400); RBC Distribution Width 12.6 % (11.5-14.5); Red Blood Cell (RBC) Count 4.16 mill/uL (4.20-5.40); White Blood Cell (WBC) Count 7.6 thou/uL (4.8-10.8)
[2019-07-02 16:50] LABS: ALT (SGPT) 15 U/L (8-55); AST (SGOT) 22 U/L (5-34); Albumin 4.2 g/dL (3.4-4.8); Alkaline Phosphatase 67 U/L (40-110); Anion Gap 23 mmol/L (10-20); BUN (Urea Nitrogen) 46 mg/dL (9.8-20.1); Bilirubin, Total 0.5 mg/dL (0.2-1.2); Calc. Creatinine Clearance 0 mL/min (70-130); Calcium 10.2 mg/dL (7.8-10.44); Carbon Dioxide 20 mmol/L (23-31); Chloride 108 mmol/L (98-107); Estimated GFR-MDRD 15; Globulin 3.9 g/dL (2.4-3.5); Glucose 104 mg/dL (83-110); Potassium 4.7 mmol/L (3.5-5.1); Protein, Total 8.1 g/dL (6.0-8.3); Sodium 146 mmol/L (136-145)
[2019-07-02 17:12] LABS: CKMB 1.8 ng/mL (0-6.6)
--- NOTE | 2019-07-02 17:26 | RAD ---
EXAM: CHEST ONE VIEW PORTABLE: History: Chest pain, shortness of breath. Comparison: 06-29-2019 FINDINGS: Old granuloma calcification on the right side. No confluent pneumonia, overt edema, or pleural effusi on. Heart size is normal. IMPRESSION: No acute intrathoracic disease. Right sided old granuloma calcification. Atherosclerosis of the aorta . POS: [facility]
[2019-07-02 20:12] LABS: Bilirubin 1+ (Negative); Blood, Urine 1+ (Negative); Clarity Turbid (Clear); Glucose, Urine (Dipstick) Normal (Negative); Leukocyte 75 Leu/uL (Negative); Nitrite Negative (Negative); Protein, Urine (Dipstick) 30 mg/dL (Neg-Trace)
[2019-07-02] MEDS ORDERED: Oseltamivir 75 MG CAP PO SCH (20:15)
[2019-07-02 20:19] LABS: Bacteria/HPF None Seen HPF (None Seen)
[2019-07-02 20:43] LABS: Lactic Acid 2.6 mmol/L (0.5-2.2)
[2019-07-02 20:53] LABS: Troponin I 0.043 ng/mL (< 0.028)
[2019-07-02 22:57] LABS: Troponin I 0.049 ng/mL (< 0.028)
[2019-07-03] MEDS ORDERED: Ondansetron PF 4 MG/2 ML Vial IVP PRN (01:03)
[2019-07-03] MEDS ORDERED: Ondansetron ODT 4 MG TAB PO PRN (01:03)
[2019-07-03] MEDS: Sodium Chloride 0.45% 1,000 ML IV SCH ×2 (01:23→15:05)
[2019-07-03] MEDS ORDERED: Ondansetron PF 4 MG/2 ML Vial ONE (01:54)
[2019-07-03 07:05] LABS: #Lymphocytes 1.4 thou/uL (1.20-3.40); #Monocytes 0.7 thou/uL (0.11-0.59); #Neutrophils 6.2 thou/uL (1.40-6.50); %Basophils 0.2 % (0.0-1.0); %Eosinophils 0.4 % (0.0-10.0); %Lymphocytes 16.3 % (21.0-51.0); %Monocytes 8.6 % (0.0-10.0); %Neutrophils 74.5 % (42.0-75.0)
[2019-07-03 07:20] LABS: Lactic Acid 2.3 mmol/L (0.5-2.2)
[2019-07-03 07:27] LABS: Anion Gap 23 mmol/L (10-20); BUN (Urea Nitrogen) 43 mg/dL (9.8-20.1); Calc. Creatinine Clearance 0 mL/min (70-130); Carbon Dioxide 14 mmol/L (23-31); Chloride 114 mmol/L (98-107); Estimated GFR-MDRD 19; Glucose 89 mg/dL (83-110); Sodium 146 mmol/L (136-145)
[2019-07-03 07:47] LABS: MDiff Complete? YES; Ovalocytes SLIGHT = 2-5 cells (100X) (0-1/hpf); Platelet Morphology Comment Appears Adequate; Polychromasia SLIGHT = 2-3 cells (100X) (0-2/hpf)
[2019-07-03 07:48] LABS: Hemoglobin 11.7 g/dL (12.0-16.0); Mean Corpuscular HGB CONC 31.7 g/dL (32.0-36.0); Mean Corpuscular Hemoglobin 29.5 pg (27.0-31.0); Mean Platelet Volume 10.8 fL (7.4-10.4); Platelet Count 131 thou/uL (130-400); RBC Distribution Width 12.7 % (11.5-14.5); Red Blood Cell (RBC) Count 3.96 mill/uL (4.20-5.40); White Blood Cell (WBC) Count 8.3 thou/uL (4.8-10.8)
[2019-07-03] MEDS ORDERED: Oseltamivir 75 MG CAP PO SCH (09:00)
--- NOTE | 2019-07-03 09:50 | CON ---
DATE OF CONSULTATION: REASON FOR CONSULTATION: Elevated creatinine. HISTORY OF PRESENT ILLNESS: This is a very pleasant 73-year-old female, who presented to the hospital with shortness of breath. The patient had a creatinine of 3.5, which improved to 2.9. Her prior baseline was 2.0 three days ago. Her baseline prior to that had been increasing gradually. The patient denies headache, numbness, tingling, or weakness. Denies any nausea, vomiting, or chest pain. PAST MEDICAL HISTORY: Significant for hypertension, migraines, palpitation, hysterectomy. SOCIOECONOMIC HISTORY: No alcohol or drug abuse. FAMILY HISTORY: Negative for ESRD. ALLERGIES: REVIEWED. MEDICATIONS: Home medications list reviewed. Hospital medications list reviewed. REVIEW OF SYSTEMS: Fifteen-point review of system was performed negative except for positive noted above. HEENT: Eyes intact, no diplopia. Ears: No hearing loss or earache. Nose: No discharge or bleeding. CHEST: No cough or phlegm. ABDOMEN: No nausea or vomiting. GENITOURINARY: No hematuria. No Maloney catheter. MUSCULOSKELETAL: No low back pain. No joint swelling or pain. NEUROLOGICAL: No syncope. No seizures. SKIN: No complaints of rash or itching. PSYCHIATRIC: No depression. CONSTITUTIONAL: No weight loss or loss of appetite. PHYSICAL EXAMINATION: GENERAL: The patient is awake and alert. VITAL SIGNS: Afebrile, pulse 77, breathing at 16, and blood pressure 130/70. HEENT: Head normocephalic and atraumatic. Eyes intact, no ulcers. Nose intact, no ulcers. Ears intact, no ulcers. NECK: Supple. No JVD. CHEST: Symmetrical and clear. CARDIOVASCULAR: Shows S1 and S2, no rub, no murmur. GASTROINTESTINAL: Abdomen is soft, bowel sounds positive. EXTREMITIES: Show no edema or ulcers. SKIN: Shows no rash or petechiae. MUSCULOSKELETAL: Shows no joint swelling or stiffness. GENITOURINARY: Shows no Maloney or CVA tenderness. NEUROLOGIC: Motor intact. Cranial nerves intact. LABORATORY DATA: Labs show creatinine 2.9. ASSESSMENT AND PLAN: 1. Acute kidney injury with chronic kidney disease, most likely due to decreased effective arterial blood volume. Continue gentle hydration. 2. Hyponatremia. Plan fluids with D5 water. Recheck labs today. No urgent indication for dialysis. Job ID: [id number]
[2019-07-03] MEDS ORDERED: cefTRIAXone\\ROCEPHIN 1 GM VIAL ONE (10:32)
[2019-07-03] MEDS: Oseltamivir 75 MG CAP PO SCH (10:35)
[2019-07-03] MEDS: cefTRIAXone\\ROCEPHIN 1 GM in Sodium Chloride 0.9% 100 ML IVPB SCH (10:43)
[2019-07-03] MEDS: Dextrose 5 %-0.45 % NaCl 1,000 ML IV SCH ×2 (11:51→20:11)
--- NOTE | 2019-07-03 13:09 | HP ---
CHIEF COMPLAINT: Generalized weakness. HISTORY OF PRESENT ILLNESS: The patient is a 73-year-old female with past medical history of hypertension, migraine, and chronic kidney disease, who presented to the hospital with complaints of generalized weakness and aching that started 3 days ago. The patient states that she was not able to keep any food or drinks down for this duration. She also endorsed fever and chills, but denied any sick contacts over the last week. In the ER, the patient tested positive for influenza B, and her laboratory studies revealed acute on chronic kidney injury. REVIEW OF SYSTEMS: Negative except as noted in HPI. PAST MEDICAL HISTORY: Hypertension, migraine, and chronic kidney disease. PAST SURGICAL HISTORY: Hysterectomy. SOCIAL HISTORY: Negative for smoking, alcohol use, or illicit drug use. PHYSICAL EXAMINATION: GENERAL: The patient is ill-appearing, alert and oriented x3. HEENT: Head is normocephalic and atraumatic. Extraocular muscles are intact. NECK: Supple. CHEST: Revealed normal S1 and S2. No murmurs, rubs, or gallops. The rate is elevated, and the rhythm is regular. LUNGS: Auscultation is clear bilaterally. ABDOMEN: Slightly tender. Nondistended. Bowel sounds positive. NEUROLOGIC: Revealed normal cranial nerves 2 through 12 and normal motor and sensory examination. LABORATORY DATA: Positive for creatinine level of 2.93, BUN of 43, sodium 146, potassium of 5, chloride of 114, and bicarb of 14. ASSESSMENT: 1. Acute kidney injury on chronic kidney disease. 2. Influenza B infection. 3. Hypertension. 4. Hypernatremia. PLAN: 1. The patient with acute influenza B infection and very poor oral intake causing dehydration and [id number] kidney injury. 2. We will initiate Tamiflu, renally dosed and start IV fluids with D5 half-normal saline at 100 mL/hour and monitor her kidney function over the next 24 to 48 hours. 3. Nephrology consult. 4. UA is showing some signs of infection with positive leukocyte esterase and increased wbc count. We will initiate ceftriaxone as well. Job ID: [id number]
[2019-07-03 14:33] VITALS: BMI 18.9
[2019-07-03] MEDS ORDERED: Fioricet 325/50/40 mg Tablet PO PRN (17:18)
[2019-07-03 18:21] LABS: Anion Gap 17 mmol/L (10-20); BUN (Urea Nitrogen) 36 mg/dL (9.8-20.1); Calc. Creatinine Clearance 15 mL/min (70-130); Calcium 8.8 mg/dL (7.8-10.44); Carbon Dioxide 21 mmol/L (23-31); Chloride 111 mmol/L (98-107); Estimated GFR-MDRD 22; Glucose 135 mg/dL (83-110); Potassium 3.8 mmol/L (3.5-5.1); Sodium 145 mmol/L (136-145)
[2019-07-04 04:38] LABS: Hemoglobin 10.1 g/dL (12.0-16.0); Hypochromia SLIGHT = 6-15 cells (100X) (0-5/hpf); Lymphocytes 9 % (21-51); MDiff Complete? YES; Mean Corpuscular HGB CONC 32.3 g/dL (32.0-36.0); Mean Corpuscular Hemoglobin 29.6 pg (27.0-31.0); Mean Corpuscular Volume 91.6 fL (78.0-98.0); Monocytes 7 % (0-10); Neutrophil 84 % (42-75); Platelet Count 165 thou/uL (130-400); Platelet Morphology Comment Appears Adequate; RBC Distribution Width 12.9 % (11.5-14.5); White Blood Cell (WBC) Count 6.9 thou/uL (4.8-10.8)
[2019-07-04 04:52] LABS: Anion Gap 16 mmol/L (10-20); BUN (Urea Nitrogen) 27 mg/dL (9.8-20.1); Calc. Creatinine Clearance 18 mL/min (70-130); Calcium 8.7 mg/dL (7.8-10.44); Carbon Dioxide 19 mmol/L (23-31); Chloride 111 mmol/L (98-107); Estimated GFR-MDRD 27; Glucose 152 mg/dL (83-110); Potassium 3.6 mmol/L (3.5-5.1); Sodium 142 mmol/L (136-145)
[2019-07-04] MEDS: Dextrose 5 %-0.45 % NaCl 1,000 ML IV SCH ×2 (08:21→16:37)
[2019-07-04] MEDS ORDERED: FLU VACC TS2019-20(65YR UP)/PF 180 MCG/0.5 ML SYRINGE IM ONE (09:00)
[2019-07-04] MEDS: Oseltamivir 75 MG CAP PO SCH (09:04)
[2019-07-04] MEDS: cefTRIAXone\\ROCEPHIN 1 GM in Sodium Chloride 0.9% 100 ML IVPB SCH (09:07)
--- NOTE | 2019-07-04 11:52 | PDOC.HOSPP ---
- Subjective Encounter Date: 07/04/19 Subjective: Complaining of nausea and vomiting - Objective Vital Signs & Weight: Vital Signs (12 hours) Temp Pulse Resp BP Pulse Ox 07/04/19 11:25 98.4 F 96 18 178/76 H 100 07/04/19 10:35 113 H 20 98 07/04/19 07:03 98.2 F 83 18 143/64 H 100 07/04/19 03:16 97.8 F 112 H 20 138/64 100 07/04/19 02:55 98 Weight Weight 107 lb 2.314 oz I&O: 07/03/19 07/04/19 07/05/19 06:59 06:59 06:59 Intake Total 2970 Output Total 750 Balance 2220 Result Diagrams: 07/04/19 03:52 07/04/19 03:52 Hospitalist ROS - Medication Medications: Active Medications Generic Name Dose Route Start Last Admin Trade Name Freq PRN Reason Stop Dose Admin Albuterol/Ipratropium 3 ml 07/03/19 02:30 07/04/19 10:35 Duoneb NEB 3 ml [id number] TRACEY Administration Diltiazem HCl 180 mg 07/03/19 09:00 07/04/19 09:03 Cardizem Cd PO 180 mg DAILY TRACEY Administration Dextrose/Sodium Chloride 1,000 mls @ 100 mls/hr 07/03/19 09:30 07/04/19 08:21 D5 1/2 Ns IV 1,000 mls .Q10H TRACEY Administration Ceftriaxone Sodium 1 gm/ 100 mls @ 200 mls/hr 07/03/19 10:00 07/04/19 09:07 Sodium Chloride IVPB 100 mls Q24HR TRACEY Administration Oseltamivir Phosphate 75 mg 07/03/19 09:00 07/04/19 09:04 Tamiflu PO 07/07/19 09:01 75 mg DAILY TRACEY Administration Sodium Chloride 10 ml 07/03/19 09:00 07/04/19 09:08 Flush - Normal Saline IVF 10 ml Q12HR TRACEY Administration - Exam General Appearance: ill appearing ENT: normocephalic atraumatic Neck: supple, no JVD Heart: RRR Respiratory: CTAB Gastrointestinal: soft, non-tender Extremities: no cyanosis, no clubbing Psychiatric: A&O x 3 Hosp A/P (1) MISHEL (acute kidney injury) Code(s): N17.9 - ACUTE KIDNEY FAILURE, UNSPECIFIED Status: Acute (2) Influenza B Code(s): J10.1 - FLU DUE TO OTH IDENT INFLUENZA VIRUS W OTH RESP MANIFEST Status: Acute - Plan Creatinine is improving. Continue IVF and Tamiflu.
[2019-07-04] MEDS: Ondansetron PF 4 MG/2 ML Vial IVP PRN (11:57)
--- NOTE | 2019-07-04 14:09 | PRG ---
DATE OF SERVICE: 07/04/2019 SUBJECTIVE: This is a 73-year-old female, being seen for acute kidney injury. The patient denies any nausea, vomiting, or chest pain. PHYSICAL EXAMINATION: General: The patient is awake and alert. Vital Signs: Afebrile, pulse 80, breathing at 16, blood pressure 143/64. HEENT: Head normocephalic and atraumatic. Eyes intact, no ulcers. Nose intact, no ulcers. Ears intact, no ulcers. Neck: Supple. No JVD. Chest: Symmetrical and clear. Cardiovascular: Shows S1 and S2, no rub, no murmur. Gastrointestinal: Abdomen is soft, bowel sounds positive. Extremities: Show no edema or ulcers. Skin: Shows no rash or petechiae. Musculoskeletal: Shows no joint swelling or stiffness. Genitourinary: Shows no Maloney or CVA tenderness. Neurologic: Motor intact. Cranial nerves intact. LABORATORY DATA: Labs show hemoglobin 10.1. Creatinine 2.1. ASSESSMENT AND PLAN: 1. Acute kidney injury, improved. 2. Chronic kidney disease, stage 3, stable. 3. Hypertension, stable. 4. Medication based on GFR appropriate. Job ID: [id number]
[2019-07-05] MEDS: Dextrose 5 %-0.45 % NaCl 1,000 ML IV SCH ×3 (04:16→21:34)
[2019-07-05 05:19] LABS: Band 1 % (5-11); Eosinophils 2 % (0-10); Hemoglobin 9.7 g/dL (12.0-16.0); Lymphocytes 13 % (21-51); MDiff Complete? YES; Mean Corpuscular HGB CONC 32.3 g/dL (32.0-36.0); Mean Corpuscular Hemoglobin 29.8 pg (27.0-31.0); Mean Corpuscular Volume 92.3 fL (78.0-98.0); Mean Platelet Volume 11.1 fL (7.4-10.4); Monocytes 7 % (0-10); Neutrophil 77 % (42-75); Platelet Count 131 thou/uL (130-400); Platelet Morphology Comment Appears Adequate; RBC Distribution Width 12.8 % (11.5-14.5); Red Blood Cell (RBC) Count 3.26 mill/uL (4.20-5.40); White Blood Cell (WBC) Count 5.1 thou/uL (4.8-10.8)
[2019-07-05 05:31] LABS: Anion Gap 12 mmol/L (10-20); BUN (Urea Nitrogen) 13 mg/dL (9.8-20.1); Calc. Creatinine Clearance 23 mL/min (70-130); Calcium 8.3 mg/dL (7.8-10.44); Carbon Dioxide 20 mmol/L (23-31); Chloride 110 mmol/L (98-107); Estimated GFR-MDRD 36; Glucose 126 mg/dL (83-110); Potassium 3.3 mmol/L (3.5-5.1); Sodium 139 mmol/L (136-145)
[2019-07-05] MEDS: Ondansetron PF 4 MG/2 ML Vial IVP PRN (08:25)
[2019-07-05] MEDS: Oseltamivir 75 MG CAP PO SCH (11:37)
[2019-07-05] MEDS: cefTRIAXone\\ROCEPHIN 1 GM in Sodium Chloride 0.9% 100 ML IVPB SCH (11:38)
--- NOTE | 2019-07-05 12:43 | PDOC.HOSPP ---
- Subjective Encounter Date: 07/05/19 Subjective: C/O Nausea - Objective Vital Signs & Weight: Vital Signs (12 hours) Temp Pulse Resp BP Pulse Ox 07/05/19 12:04 100 07/05/19 10:53 98.3 F 96 20 175/79 H 100 07/05/19 08:30 98 F 96 15 160/70 H 100 07/05/19 07:33 110 H 20 98 07/05/19 03:44 98.7 F 107 H 18 161/72 H 97 07/05/19 02:37 18 98 Weight Admit Weight 107 lb 2.314 oz Weight 96 lb 1.945 oz I&O: 07/04/19 07/05/19 07/06/19 06:59 06:59 06:59 Intake Total 2970 2000 1253 Output Total 750 500 500 Balance 2220 1500 753 Result Diagrams: 07/05/19 04:34 07/05/19 04:34 Hospitalist ROS - Medication Medications: Active Medications Generic Name Dose Route Start Last Admin Trade Name Freq PRN Reason Stop Dose Admin Albuterol/Ipratropium 3 ml 07/03/19 02:30 07/05/19 07:33 Duoneb NEB 3 ml [id number] TRACEY Administration Diltiazem HCl 180 mg 07/03/19 09:00 07/05/19 11:37 Cardizem Cd PO Not Given DAILY TRACEY Dextrose/Sodium Chloride 1,000 mls @ 100 mls/hr 07/03/19 09:30 07/05/19 04:16 D5 1/2 Ns IV 1,000 mls .Q10H TRACEY Administration Ceftriaxone Sodium 1 gm/ 100 mls @ 200 mls/hr 07/03/19 10:00 07/05/19 11:38 Sodium Chloride IVPB 100 mls Q24HR TRACEY Administration Ondansetron HCl 4 mg 07/04/19 11:50 07/05/19 08:25 Zofran IVP 4 mg Q6H PRN Administration Nausea/Vomiting Oseltamivir Phosphate 75 mg 07/03/19 09:00 07/05/19 11:37 Tamiflu PO 07/07/19 09:01 Not Given DAILY TRACEY Sodium Chloride 10 ml 07/03/19 09:00 07/05/19 08:25 Flush - Normal Saline IVF 10 ml Q12HR TRACEY Administration - Exam General Appearance: NAD ENT: normocephalic atraumatic Neck: supple, no JVD Heart: RRR Respiratory: CTAB, no ronchi Gastrointestinal: soft, non-tender, normal bowel sounds Neurological: cranial nerve grossly intact, no focal deficits Hosp A/P (1) MISHEL (acute kidney injury) Code(s): N17.9 - ACUTE KIDNEY FAILURE, UNSPECIFIED Status: Acute (2) Influenza B Code(s): J10.1 - FLU DUE TO OTH IDENT INFLUENZA VIRUS W OTH RESP MANIFEST Status: Acute - Plan Creatinine is improving. Continue IVF and Tamiflu. Continue IV Ceftriaxone for UTI
--- NOTE | 2019-07-05 12:50 | PRG ---
DATE OF SERVICE: 07/05/2019 SUBJECTIVE: A 73-year-old female, being seen for acute kidney injury. The patient denied any nausea, vomiting, or chest pain. PHYSICAL EXAMINATION: General: The patient is awake and alert. Vital Signs: Afebrile, pulse 75, breathing at 16, blood pressure 160/70. HEENT: Head normocephalic and atraumatic. Eyes intact, no ulcers. Nose intact, no ulcers. Ears intact, no ulcers. Neck: Supple. No JVD. Chest: Symmetrical and clear. Cardiovascular: Shows S1 and S2, no rub, no murmur. Gastrointestinal: Abdomen is soft, bowel sounds positive. Extremities: Show no edema or ulcers. Skin: Shows no rash or petechiae. Musculoskeletal: Shows no joint swelling or stiffness. Genitourinary: Shows no Maloney or CVA tenderness. Neurologic: Motor intact. Cranial nerves intact. LABORATORY DATA: Labs show hemoglobin 9.7. Potassium 3.3 and creatinine 1.7. ASSESSMENT AND PLAN: 1. Acute kidney injury, improved. 2. Hypertension, stable. 3. Anemia, stable. 4. Hypokalemia, recommend potassium replacement. No indication for dialysis. Job ID: [id number]
[2019-07-06] MEDS: Dextrose 5 %-0.45 % NaCl 1,000 ML IV SCH ×2 (05:33→17:33)
[2019-07-06 06:18] LABS: Anion Gap 12 mmol/L (10-20); BUN (Urea Nitrogen) 8 mg/dL (9.8-20.1); Calc. Creatinine Clearance 22 mL/min (70-130); Calcium 7.8 mg/dL (7.8-10.44); Carbon Dioxide 21 mmol/L (23-31); Chloride 108 mmol/L (98-107); Estimated GFR-MDRD 38; Glucose 119 mg/dL (83-110); Sodium 138 mmol/L (136-145)
[2019-07-06 06:24] LABS: Potassium 2.8 mmol/L (3.5-5.1)
[2019-07-06 06:32] LABS: Eosinophils 2 % (0-10); Hemoglobin 9.2 g/dL (12.0-16.0); Lymphocytes 22 % (21-51); MDiff Complete? YES; Mean Corpuscular HGB CONC 32.8 g/dL (32.0-36.0); Mean Corpuscular Hemoglobin 29.6 pg (27.0-31.0); Mean Corpuscular Volume 90.4 fL (78.0-98.0); Mean Platelet Volume 10.9 fL (7.4-10.4); Monocytes 9 % (0-10); Neutrophil 67 % (42-75); Platelet Count 123 thou/uL (130-400); RBC Distribution Width 12.5 % (11.5-14.5); White Blood Cell (WBC) Count 4.7 thou/uL (4.8-10.8)
[2019-07-06] MEDS: cefTRIAXone\\ROCEPHIN 1 GM in Sodium Chloride 0.9% 100 ML IVPB SCH (09:37)
[2019-07-06] MEDS: Oseltamivir 75 MG CAP PO SCH (09:37)
[2019-07-06 11:30] LABS: Anion Gap 14 mmol/L (10-20); BUN (Urea Nitrogen) 7 mg/dL (9.8-20.1); Calc. Creatinine Clearance 22 mL/min (70-130); Calcium 7.8 mg/dL (7.8-10.44); Carbon Dioxide 21 mmol/L (23-31); Chloride 107 mmol/L (98-107); Estimated GFR-MDRD 39; Glucose 115 mg/dL (83-110); Sodium 139 mmol/L (136-145)
[2019-07-06 11:33] LABS: Potassium 2.9 mmol/L (3.5-5.1)
[2019-07-06] MEDS: Potassium Chloride 20 MEQ TAB PO SCH ×2 (12:23→14:32)
--- NOTE | 2019-07-06 12:47 | PRG ---
DATE OF SERVICE: 07/06/2019 SUBJECTIVE: This is a 73-year-old female, being seen for acute kidney injury. The patient denies any nausea, vomiting, or chest pain OBJECTIVE: GENERAL: The patient is awake and alert. VITAL SIGNS: Afebrile, pulse 71, breathing at 16, blood pressure 131/76. HEENT: Head normocephalic and atraumatic. Eyes intact, no ulcers. Nose intact, no ulcers. Ears intact, no ulcers. NECK: Supple. No JVD. CHEST: Symmetrical and clear. CARDIOVASCULAR: Shows S1 and S2, no rub, no murmur. GASTROINTESTINAL: Abdomen is soft, bowel sounds positive. EXTREMITIES: Show no edema or ulcers. SKIN: Shows no rash or petechiae. MUSCULOSKELETAL: Shows no joint swelling or stiffness. GENITOURINARY: Shows no Maloney or CVA tenderness. NEUROLOGIC: Motor intact. Cranial nerves intact. LABORATORY DATA: Reviewed. ASSESSMENT AND PLAN: 1. Stage 3 chronic kidney disease, stable. 2. Acute kidney injury, stable. 3. Hypokalemia. Recommend aggressive potassium replacement as well as magnesium replacement. Please order daily labs, which should include magnesium as well. Job ID: [id number]
--- NOTE | 2019-07-06 15:41 | PDOC.HOSPP ---
- Subjective Encounter Date: 07/06/19 Subjective: Complained of shortness of breath overnight - Objective Vital Signs & Weight: Vital Signs (12 hours) Temp Pulse Resp BP Pulse Ox 07/06/19 15:11 103 H 20 99 07/06/19 12:59 98.3 F 92 18 112/60 07/06/19 10:45 96 21 H 100 07/06/19 08:00 99 07/06/19 07:45 98.7 F 107 H 17 131/67 99 07/06/19 04:11 102 H 16 07/06/19 04:00 98.6 F 107 H 18 143/71 H 99 Weight Admit Weight 107 lb 2.314 oz Weight 96 lb 1.945 oz I&O: 07/05/19 07/06/19 07/07/19 06:59 06:59 06:59 Intake Total 2000 1253 Output Total 500 500 Balance 1500 753 Result Diagrams: 07/06/19 05:39 07/06/19 11:02 Hospitalist ROS - Medication Medications: Active Medications Generic Name Dose Route Start Last Admin Trade Name Freq PRN Reason Stop Dose Admin Albuterol/Ipratropium 3 ml 07/03/19 02:30 07/06/19 15:11 Duoneb NEB 3 ml [id number] TRACEY Administration Diltiazem HCl 180 mg 07/03/19 09:00 07/06/19 09:44 Cardizem Cd PO Not Given DAILY TRACEY Dextrose/Sodium Chloride 1,000 mls @ 100 mls/hr 07/03/19 09:30 07/06/19 05:33 D5 1/2 Ns IV 1,000 mls .Q10H TRACEY Administration Ceftriaxone Sodium 1 gm/ 100 mls @ 200 mls/hr 07/03/19 10:00 07/06/19 09:37 Sodium Chloride IVPB 100 mls Q24HR TRACEY Administration Ondansetron HCl 4 mg 07/04/19 11:50 07/05/19 08:25 Zofran IVP 4 mg Q6H PRN Administration Nausea/Vomiting Oseltamivir Phosphate 75 mg 07/03/19 09:00 07/06/19 09:37 Tamiflu PO 07/07/19 09:01 75 mg DAILY TRACEY Administration Sodium Chloride 10 ml 07/03/19 09:00 07/06/19 09:38 Flush - Normal Saline IVF Not Given Q12HR TRACEY - Exam General Appearance: NAD ENT: normocephalic atraumatic Neck: supple Heart: RRR Respiratory: rhonchi, wheezes Gastrointestinal: soft, non-tender, non-distended, normal bowel sounds Extremities: no cyanosis Neurological: cranial nerve grossly intact Hosp A/P (1) MISHEL (acute kidney injury) Code(s): N17.9 - ACUTE KIDNEY FAILURE, UNSPECIFIED Status: Acute (2) Influenza B Code(s): J10.1 - FLU DUE TO OTH IDENT INFLUENZA VIRUS W OTH RESP MANIFEST Status: Acute (3) Hypokalemia Code(s): E87.6 - HYPOKALEMIA Status: Acute (4) Hypomagnesemia Code(s): E83.42 - HYPOMAGNESEMIA Status: Acute - Plan Creatinine is improving. Continue IVF and Tamiflu. Continue IV Ceftriaxone for UTI Replace K and MAG Start Po Prednisone Likely home tomorrow
[2019-07-06] MEDS ORDERED: Magnesium 2 GM/50 ML 2 GM in Premix Bag 1 BAG IVPB SCH (15:45)
[2019-07-06] MEDS ORDERED: predniSONE 20 MG TAB PO SCH (15:45)
[2019-07-07] MEDS: Dextrose 5 %-0.45 % NaCl 1,000 ML IV SCH ×3 (03:42→19:54)
[2019-07-07 06:39] LABS: Eosinophils 8 % (0-10); Hemoglobin 9.1 g/dL (12.0-16.0); Lymphocytes 23 % (21-51); MDiff Complete? YES; Mean Corpuscular HGB CONC 33.8 g/dL (32.0-36.0); Mean Corpuscular Hemoglobin 30.4 pg (27.0-31.0); Mean Corpuscular Volume 89.8 fL (78.0-98.0); Monocytes 8 % (0-10); Neutrophil 61 % (42-75); Platelet Count 134 thou/uL (130-400); RBC Distribution Width 12.7 % (11.5-14.5); White Blood Cell (WBC) Count 4.8 thou/uL (4.8-10.8)
[2019-07-07 06:51] LABS: Anion Gap 14 mmol/L (10-20); BUN (Urea Nitrogen) 5 mg/dL (9.8-20.1); Calc. Creatinine Clearance 26 mL/min (70-130); Calcium 7.6 mg/dL (7.8-10.44); Carbon Dioxide 20 mmol/L (23-31); Chloride 107 mmol/L (98-107); Estimated GFR-MDRD 46; Glucose 111 mg/dL (83-110); Magnesium 1.4 mg/dL (1.6-2.6); Sodium 138 mmol/L (136-145)
[2019-07-07 06:59] LABS: Potassium 2.9 mmol/L (3.5-5.1)
[2019-07-07] MEDS: Oseltamivir 75 MG CAP PO SCH (08:15)
[2019-07-07] MEDS: predniSONE 20 MG TAB PO SCH (08:15)
[2019-07-07] MEDS ORDERED: Potassium Chloride 10 MEQ in Premix Bag 1 BAG IVPB SCH (08:20)
[2019-07-07] MEDS: cefTRIAXone\\ROCEPHIN 1 GM in Sodium Chloride 0.9% 100 ML IVPB SCH (09:23)
[2019-07-07] MEDS ORDERED: Potassium Chloride 20 MEQ in Premix Bag 1 BAG IVPB SCH ×2 (12:00)
--- NOTE | 2019-07-07 13:58 | PDOC.HOSPP ---
- Subjective Encounter Date: 07/07/19 Subjective: Feels better - Objective Vital Signs & Weight: Vital Signs (12 hours) Temp Pulse Resp BP Pulse Ox 07/07/19 13:44 104 H 16 100 07/07/19 12:11 98.8 F 105 H 16 160/73 H 99 07/07/19 10:09 102 H 16 100 07/07/19 08:23 98.4 F 106 H 16 157/75 H 100 07/07/19 08:00 100 07/07/19 06:43 102 H 16 100 07/07/19 04:00 99.0 F 98 20 124/64 100 Weight Admit Weight 107 lb 2.314 oz Weight 96 lb 1.945 oz I&O: 07/06/19 07/07/19 07/08/19 06:59 06:59 06:59 Intake Total 1253 1200 Output Total 500 Balance 753 1200 Result Diagrams: 07/07/19 06:00 07/07/19 06:00 Hospitalist ROS - Medication Medications: Active Medications Generic Name Dose Route Start Last Admin Trade Name Freq PRN Reason Stop Dose Admin Albuterol/Ipratropium 3 ml 07/03/19 02:30 07/07/19 13:44 Duoneb NEB 3 ml [id number] TRACEY Administration Diltiazem HCl 180 mg 07/03/19 09:00 07/07/19 08:15 Cardizem Cd PO 180 mg DAILY TRACEY Administration Dextrose/Sodium Chloride 1,000 mls @ 100 mls/hr 07/03/19 09:30 07/07/19 03:42 D5 1/2 Ns IV 1,000 mls .Q10H TRACEY Administration Ceftriaxone Sodium 1 gm/ 100 mls @ 200 mls/hr 07/03/19 10:00 07/07/19 09:23 Sodium Chloride IVPB 100 mls Q24HR TRACEY Administration Potassium Chloride 20 meq/ 100 mls @ 50 mls/hr 07/07/19 12:00 07/07/19 12:43 Device IVPB 07/07/19 15:00 100 mls 1200 TRACEY Administration Ondansetron HCl 4 mg 07/04/19 11:50 07/05/19 08:25 Zofran IVP 4 mg Q6H PRN Administration Nausea/Vomiting Prednisone 40 mg 07/07/19 08:00 07/07/19 08:15 Prednisone PO 40 mg QAM-WM TRACEY Administration Sodium Chloride 10 ml 07/03/19 09:00 07/07/19 08:22 Flush - Normal Saline IVF Not Given Q12HR TRACEY - Exam General Appearance: NAD ENT: normocephalic atraumatic Neck: supple, no JVD Heart: RRR, no murmur, no gallops, no rubs Respiratory: CTAB, no wheezes, no rales, no ronchi Gastrointestinal: soft, non-tender, non-distended, normal bowel sounds Hosp A/P (1) MISHEL (acute kidney injury) Code(s): N17.9 - ACUTE KIDNEY FAILURE, UNSPECIFIED Status: Acute (2) Influenza B Code(s): J10.1 - FLU DUE TO OTH IDENT INFLUENZA VIRUS W OTH RESP MANIFEST Status: Acute (3) Hypokalemia Code(s): E87.6 - HYPOKALEMIA Status: Acute (4) Hypomagnesemia Code(s): E83.42 - HYPOMAGNESEMIA Status: Acute - Plan Creatinine is improving. Continue IVF and Tamiflu. Continue IV Ceftriaxone for UTI She was not able to take PO K Replace K and Mag IV Po Prednisone Likely home tomorrow
[2019-07-07] MEDS ORDERED: Magnesium Sulfate 2 GM in Sodium Chloride 0.9% 100 ML IVPB SCH (14:00)
[2019-07-07] MEDS ORDERED: Magnesium 2 GM/50 ML 2 GM in Premix Bag 1 BAG IVPB SCH (14:15)
--- NOTE | 2019-07-08 00:59 | PRG ---
DATE OF SERVICE: 07/07/2019 SUBJECTIVE: A 73-year-old female being seen for acute kidney injury. The patient denies any nausea, vomiting, or chest pain. PHYSICAL EXAMINATION: GENERAL: Patient is awake and alert. VITAL SIGNS: Pulse 75, breathing 16, blood pressure 130/72. HEENT: Head normocephalic and atraumatic. Eyes intact, no ulcers. Nose intact, no ulcers. Ears intact, no ulcers. Neck: Supple. No JVD. Chest: Symmetrical and clear. Cardiovascular: Shows S1 and S2, no rub, no murmur. Gastrointestinal: Abdomen is soft, bowel sounds positive. Extremities: Show no edema or ulcers. Skin: Shows no rash or petechiae. Musculoskeletal: Shows no joint swelling or stiffness. Genitourinary: Shows no Maloney or CVA tenderness. Neurologic: Motor intact. Cranial nerves intact. LABORATORY DATA: Reviewed. Hemoglobin 9.1, creatinine is 1.3. ASSESSMENT: 1. Acute kidney injury. 2. Hypertension with anemia, stable. I will sign off on this patient. 3. Hypomagnesemia. Would recommend aggressive magnesium replacement. 4. Hypokalemia. Would recommend 80 mEq of potassium throughout the day. Job ID: [id number]
[2019-07-08 06:19] LABS: Anion Gap 12 mmol/L (10-20); BUN (Urea Nitrogen) 6 mg/dL (9.8-20.1); Calc. Creatinine Clearance 30 mL/min (70-130); Calcium 7.7 mg/dL (7.8-10.44); Carbon Dioxide 19 mmol/L (23-31); Chloride 109 mmol/L (98-107); Estimated GFR-MDRD 54; Glucose 121 mg/dL (83-110); Potassium 3.8 mmol/L (3.5-5.1); Sodium 136 mmol/L (136-145)
[2019-07-08 08:01] LABS: Hemoglobin 7.7 g/dL (12.0-16.0); Lymphocytes 28 % (21-51); MDiff Complete? YES; Mean Corpuscular HGB CONC 34.1 g/dL (32.0-36.0); Mean Corpuscular Hemoglobin 30.9 pg (27.0-31.0); Mean Corpuscular Volume 90.3 fL (78.0-98.0); Mean Platelet Volume 10.4 fL (7.4-10.4); Monocytes 14 % (0-10); Neutrophil 57 % (42-75); Platelet Count 134 thou/uL (130-400); RBC Distribution Width 12.8 % (11.5-14.5); White Blood Cell (WBC) Count 6.9 thou/uL (4.8-10.8)
[2019-07-08] MEDS: predniSONE 20 MG TAB PO SCH (08:58)
[2019-07-08] MEDS: cefTRIAXone\\ROCEPHIN 1 GM in Sodium Chloride 0.9% 100 ML IVPB SCH (08:59)
[2019-07-08] MEDS: Dextrose 5 %-0.45 % NaCl 1,000 ML IV SCH (10:15)
[2019-07-08 14:50] LABS: Band 1 % (5-11); Eosinophils 2 % (0-10); Lymphocytes 21 % (21-51); MDiff Complete? YES; Mean Corpuscular HGB CONC 33.4 g/dL (32.0-36.0); Mean Corpuscular Hemoglobin 30.4 pg (27.0-31.0); Mean Corpuscular Volume 91.1 fL (78.0-98.0); Monocytes 12 % (0-10); Neutrophil 63 % (42-75); Ovalocytes SLIGHT = 2-5 cells (100X) (0-1/hpf); Platelet Count 145 thou/uL (130-400); Platelet Morphology Comment Appears Adequate; Polychromasia SLIGHT = 2-3 cells (100X) (0-2/hpf); Reactive Lymphocytes 1 % (0-10); Red Blood Cell (RBC) Count 2.96 mill/uL (4.20-5.40); Schistocytes SLIGHT = 2-5 cells (100X) (0-1/hpf); Tear Drops SLIGHT = 2-5 cells (100X) (0-1/hpf); White Blood Cell (WBC) Count 7.3 thou/uL (4.8-10.8)
--- NOTE | 2019-07-08 15:07 | PRG ---
DATE OF SERVICE: 07/08/2019 SUBJECTIVE: A 73-year-old female being seen for acute kidney injury. The patient denied any nausea, vomiting, or chest pain. PHYSICAL EXAMINATION: GENERAL: The patient is awake and alert. VITAL SIGNS: Afebrile, pulse 80, breathing at 16, and blood pressure 156/74. HEENT: Head normocephalic and atraumatic. Eyes intact, no ulcers. Nose intact, no ulcers. Ears intact, no ulcers. NECK: Supple. No JVD. CHEST: Symmetrical and clear. CARDIOVASCULAR: Shows S1 and S2, no rub, no murmur. GASTROINTESTINAL: Abdomen is soft, bowel sounds positive. EXTREMITIES: Show no edema or ulcers. SKIN: Shows no rash or petechiae. MUSCULOSKELETAL: Shows no joint swelling or stiffness. GENITOURINARY: Shows no Maloney or CVA tenderness. NEUROLOGIC: Motor intact. Cranial nerves intact. LABORATORY DATA: Hemoglobin 9. ASSESSMENT AND PLAN: 1. Chronic kidney disease, stage 3, stable. 2. Hypertension, stable. 3. Acute kidney injury, resolved. 4. Metabolic acidosis, stable. 5. I will sign off on this patient. 6. Medication based on GFR appropriate. I will sign off on this patient. Please reconsult as needed. Job ID: [id number]
[2019-07-08 16:30] VITALS: BP 136/60; TEMP 98.3
--- NOTE | 2019-07-09 17:13 | DIS ---
DATE OF ADMISSION: 07/02/2019 DATE OF DISCHARGE: 07/08/2019 DISCHARGE DIAGNOSES: 1. Acute kidney injury. 2. Influenza B. 3. Hypokalemia. 4. Hypomagnesemia. DISCHARGE MEDICATIONS: 1. Amlodipine 5 mg orally daily. 2. Aspirin 81 mg orally daily. 3. Dulcolax 10 mg per rectal daily as needed for constipation. 4. Dicyclomine 20 mg orally 4 times a day as needed for stomach cramp. 5. Diltiazem 180 mg orally daily extended release. 6. Colace 100 mg orally twice daily as needed for constipation. 7. Fluconazole 150 mg orally daily. 8. Lisinopril 10 mg orally daily. 9. Naproxen 500 mg orally twice daily as needed for pain. 10. Omeprazole 40 mg orally daily. 11. Tizanidine 2 mg capsule every 8 hours as needed for muscle spasm. BRIEF HISTORY OF PRESENT ILLNESS AND HOSPITAL COURSE: The patient is a 73-year-old female with past medical history of hypertension, migraine, and chronic kidney disease, who presented to the hospital with complaints of generalized weakness and aching that started 3 days prior to presentation. She was unable to keep any food or drinks down for this duration. In the ER, her flu B was positive and she was found to be in [id number] kidney injury, likely due to dehydration. The patient was admitted to the hospital and was started on Tamiflu and IV fluids leading to improvement in her kidney function and improvement in her symptoms. She developed hypokalemia. This required multiple replacements with potassium and magnesium to correct. The patient was instructed to follow up with her PCP in 1 week. Job ID: [id number]
--- NOTE | 2019-07-10 10:58 | PQF ---
KANGSHALONDA BENJA CRUZ [id number] [facility]-288 [id number] CLINICAL DOCUMENTATION CLARIFICATION FORM: POST DISCHARGE Addendum to original discharge summary date: ____ Late entry note date: __ Date:07/10/2019 ATTN: BENJA SOLARES Please exercise your independent, professional judgment in responding to the clarification form. Clinical indicators are provided on the bottom of this form for your review Please check appropriate box(s): [ >] Protein Calorie Malnutrition: [ ] Mild [ > ] Moderate [ ] Severe [ ] Other Malnutrition (please specify) __ [ ] Underweight without malnutrition [ ] Cachexia [ ] Other diagnosis [ ] Unable to determine In addition, please specify: Present on Admission (POA): [ > ] Yes [ ] No [ ] Unable to determine CLINICAL INDICATORS - SIGNS / SYMPTOMS / LABS Generalized weakness-Documented in H&P on 07/01 by Benja Solares MD Acute kidney injury-Documented in H&P on 07/01 by Benja Solares MD BMI-18.9-Documented in FNS assessment Patient report of no PO intake x3 days FORK OPERATOR, 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-Documented in FNS assessment on 07/03 RISK FACTORS Patient report of no PO intake x3 days FORK OPERATOR, 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-Documented in FNS assessment on 07/03 TREATMENT: Recommend a renal-protein low diet-Documented in FNS assessment on 07/03 Recommend suplena once daily -Documented in FNS assessment on 07/03 Provide antiemetics PRN-Documented in FNS assessment on 07/03 General/healthful diet modify meals /snacks-Documented in FNS assessment on Moderate Malnutrition (in acute illness) Energy Intake: <75% of estimated energy requirement for > 7 days Weight Loss: 1-2%/1 week; 5%/ 1 month; 7.5%/3 months SAP Performing Artist Crystal Reports Winform ViewerOther: mild body fat loss; mild muscle mass loss; mild fluid accumulation; Severe Malnutrition (in acute illness) Energy Intake: < 50% of estimated energy requirement for > 5 days Weight Loss: >1-2%/1 week; >5%/1 month; >7.5%/3 months Other: moderate body fat loss; moderate muscle mass loss; moderate- severe fluid accumulation; measurably reduced tablet repair strength Moderate Malnutrition (in chronic illness) Energy Intake: <75% of estimated energy requirement for >1 month Weight Loss: 5%/1 month; 7.5%/3 months; 10%/6 months; 20%/1 year Other: mild body fat loss; mild muscle mass loss; mild fluid accumulation Severe Malnutrition (in chronic illness) Energy Intake: <75% of estimated energy requirement for >1 month Weight Loss: >5%/1 month; >7.5%/3 months; >10%/6 months; >20%/1 year Other: severe body fat loss; severe muscle mass loss; severe fluid accumulation ; measurably reduced tablet repair strength (This form is maintained as a part of the permanent medical record) 2014 [employer]. All Rights Reserved [email or web address] [phone] MTDD
--- NOTE | 2019-07-12 11:49 | PQF ---
KANGSHALONDA BENJA LEMUS [id number] [facility]-288 [id number] CLINICAL DOCUMENTATION CLARIFICATION FORM: POST DISCHARGE Addendum to original discharge summary date: ____ Late entry note date: __ DATE:07/12/2019 ATTN: BENJA LEMUS Please exercise your independent, professional judgment in responding to the clarification form. Clinical indicators are provided on the bottom of this form for your review Please check appropriate box(s): AMI TYPE: [ ] Acute Coronary Syndrome (ACS) without Acute LA meaning Unstable Angina [ ] NSTEMI (LA type I) [ ] NSTEMI due to Demand Ischemia (AMI Type II) [ > ] Demand Ischemia without LA [ ] STEMI (please also specify site and arterysee below) If STEMI, SITE:[ ] Anterior [ ] Apical [ ] Lateral [ ] Inferior [ ] Posterior [ ] Q Wave [ ] Septal [ ] Unable to Determine SPECIFIC ARTERY (Based on site) [ ] Left Main Coronary[ ] Diagonal [ ] Left Anterior Descending[ ] Oblique Marginal [ ] Right Coronary Artery[ ] Unable to Determine [ ] Left Circumflex [ ] Other diagnosis [ ] Unable to determine In addition, please specify: Present on Admission (POA): [ > ] Yes [ ] No [ ] Unable to determine CLINICAL INDICATORS - SIGNS / SYMPTOMS / LABS Indeterminate troponin-Documented in ED on 07/01 by [facility] 12 lead EKG shows, Sinus tachycardia, Rate-104, Anterior infarct, age undetermined, [place] lef, Biatrial enlargement- -Documented in ED on 07/01 by [employer] [facility] HTN-Documented in H&P on 07/02 by Benja Lemus MD RISKS: HTN-Documented in H&P on 07/02 by Benja Lemus MD CKD3-Documented in PN on 07/07 by Anastacio Fleming MD TREATMENTS: Aspirin 81 mg PO daily-Documented in Medication snapshot Diltiazem HCL 180 mg PO daily -Documented in Medication snapshot SAP Cake Stripper [employer] Winform Viewer (This form is maintained as a part of the permanent medical record) 2014 [employer]. All Rights Reserved [email or web address]
--- NOTE | 2019-07-14 09:07 | EKG ---
Test Reason : Blood Pressure : / mmHG Vent. Rate : 104 BPM Atrial Rate : 104 BPM P-R Int : 126 ms QRS Dur : 068 ms QT Int : 338 ms P-R-T Axes : 081 -45 078 degrees QTc Int : 444 ms Sinus tachycardia Biatrial enlargement Left axis deviation Anterior infarct , age undetermined Abnormal ECG Confirmed by AMOS MENDOZA, JOSE ([id number]), supervising film or videotape editor ROSELIA GALLAGHER ([id number]) on 07/14/2019 9:06:45 AM Referred By: Confirmed By:JOSE TRINIDAD MD
== END 2019-07-08 17:08 | disposition home or self-care (01) | DRG 683 ==
LOC: ERS 15:53 → ERHOLD 19:56 → 2NO 07-03 13:58 → T4-B 07-05 10:38
PROVIDERS: ADMIT Emergency Medicine; ATTEND Emergency Medicine
DX: N17.9 Acute kidney failure, unspecified (principal); E87.0 Hyperosmolality and hypernatremia; N39.0 Urinary tract infection, site not specified; E87.2 Acidosis; E44.0 Moderate protein-calorie malnutrition; Z68.1 Body mass index [BMI] 19.9 or less, adult; I24.8 Other forms of acute ischemic heart disease; J10.1 Influenza due to other identified influenza virus with other respiratory manifestations; E87.6 Hypokalemia; E83.42 Hypomagnesemia; E86.0 Dehydration; G43.909 Migraine, unspecified, not intractable, without status migrainosus; R40.2362 Coma scale, best motor response, obeys commands, at arrival to emergency department; R40.2142 Coma scale, eyes open, spontaneous, at arrival to emergency department; R40.2252 Coma scale, best verbal response, oriented, at arrival to emergency department; I12.9 Hypertensive chronic kidney disease with stage 1 through stage 4 chronic kidney disease, or unspecified chronic kidney disease; N18.3 Chronic kidney disease, stage 3 (moderate); D64.9 Anemia, unspecified; Z88.2 Allergy status to sulfonamides; Z90.49 Acquired absence of other specified parts of digestive tract; Z88.8 Allergy status to other drugs, medicaments and biological substances
CPT/HCPCS: 36415; 70450; 71045; 72170; 80048; 80053; 81003; 81015; 82550; 82553; 83605; 83690; 83735; 83880; 84484; 85007; 85025; 85027; 87804; 93005; 94640; 96360; 96361; J0696; J2405; J3475; J3480; J3490; J7512; J7620

== ENCOUNTER 2020-01-31 08:16 | Outpatient (CLI) | payer MEDICARE ==
--- NOTE | 2020-01-31 09:41 | MMO ---
Bilateral MAMMO Bilat Screen [facility]O. CLINICAL HISTORY: Patient is 74 years old and is seen for screening. The patient has no family history of breast cancer. The patient has no personal history of cancer. VIEWS: The views performed were: bilateral craniocaudal with tomosynthesis and bilateral mediolateral oblique with tomosynthesis. This study has been interpreted with the assistance of computer-aided detection. MAMMOGRAM FINDINGS: There are scattered fibroglandular densities. There are benign appearing calcifications seen in both breasts. There are no suspicious masses, suspicious calcifications, or new areas of architectural distortion. IMPRESSION: THERE IS NO MAMMOGRAPHIC EVIDENCE OF MALIGNANCY. A ROUTINE FOLLOW-UP MAMMOGRAM IN 1 YEAR IS RECOMMENDED. THE RESULTS OF THIS EXAM WERE SENT TO THE PATIENT. ACR BI-RADS Category 2 - Benign finding MAMMOGRAPHY NOTE: 1. A negative mammogram report should not delay a biopsy if a dominant of clinically suspicious mass is present. 2. Approximately 10% to 15% of breast cancers are not detected by mammography. 3. Adenosis and dense breasts may obscure an underlying neoplasm. Reported by: JOEL FORBES MD Electonically Signed: [id number]
== END 2020-01-31 08:17 | disposition home or self-care (01) ==
LOC: BICMAMMO 08:16
PROVIDERS: ATTEND Family Medicine
DX: Z12.31 Encounter for screening mammogram for malignant neoplasm of breast (principal)
CPT/HCPCS: 77063; 77067

== ENCOUNTER 2020-05-09 09:01 | Outpatient (CLI) | payer MEDICARE ==
--- NOTE | 2020-05-09 09:42 | ULT ---
Thyroid ultrasound: 05/09/2020 COMPARISON: None HISTORY: Thyroid nodule TECHNIQUE: Multiplanar grayscale sonographic imaging of the thyroid gland provided. FINDINGS: The isthmus measures 2-3 mm in AP dimension, the right lobe measures 4.9 x 1.5 x 2.5 cm, an d the left lobe measures 5.1 x 1.3 x 1.8 cm. There is an oblong heterogeneously hypoechoic solid nodule within the midportion of the right lobe me asuring 1.2 x 2.8 x 2.0 cm. 2 subcentimeter solid nodules are seen within the superior aspect of the right lobe measuring up to 7 mm. There is a mildly complex cystic nodule in the midportion of the left lobe measuring 8 x 10 x 6 mm. T here is an additional small cystic nodule within the left lobe measuring 5 x 4 x 5 mm. IMPRESSION: TI-RADS Category 4-moderately suspicious. Recommend fine needle aspiration of the dominan t right lobe nodule.
--- NOTE | 2020-05-09 09:51 | BD ---
DEXA BONE DENSITY SCAN: DATE: 05/09/2020. COMPARISON: None. HISTORY: Postmenopausal female undergoing screening for osteoporosis. FINDINGS: Lumbar Spine: BMD (g/cm2) L1 0.887 T-Score: -0.9 L2 0.871 T-Score: -1.4 L3 0.926 T-Score: -1.4 L4 0.860 T-Score: -1.8 L1-L4 0.887 T-Score: -1.5 Femoral Neck: 0.500 T-Score: -3.1 Total Femur: 0.558 T-Score: -3.2 FRAX-WHO fracture risk assessment tool not reported as T-scores are at or below -2.5. 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 Transcribed Date/Time: 05/09/2020 10:10 AM
== END 2020-05-09 09:02 | disposition home or self-care (01) ==
LOC: BICMAMMO 09:01
PROVIDERS: ATTEND Family Medicine
DX: Z13.820 Encounter for screening for osteoporosis (principal); E04.1 Nontoxic single thyroid nodule; Z78.0 Asymptomatic menopausal state; M81.0 Age-related osteoporosis without current pathological fracture
CPT/HCPCS: 76536; 77080

== ENCOUNTER 2020-07-21 10:08 | Outpatient (CLI) | payer MEDICARE ==
[2020-07-21 11:34] LABS: Hemoglobin 10.7 g/dL (12.0-15.5)
[2020-07-21 11:43] LABS: Anion Gap 13 mmol/L (10-20); BUN (Urea Nitrogen) 26 mg/dL (9.8-20.1); Calc. Creatinine Clearance 0 mL/min (70-130); Calcium 8.7 mg/dL (7.8-10.44); Carbon Dioxide 22 mmol/L (23-31); Chloride 110 mmol/L (98-107); Glucose 97 mg/dL (83-110); Potassium 4.8 mmol/L (3.5-5.1); Sodium 140 mmol/L (136-145)
[2020-07-21 22:23] LABS: SARS-CoV-2 PCR by NAA Not Detected (NotDetected)
== END 2020-07-21 10:09 | disposition home or self-care (01) ==
LOC: LABBT 10:08
PROVIDERS: ATTEND Specialist
DX: Z01.818 Encounter for other preprocedural examination (principal); E04.1 Nontoxic single thyroid nodule; E07.9 Disorder of thyroid, unspecified; J98.8 Other specified respiratory disorders; Z20.822 Contact with and (suspected) exposure to COVID-19
CPT/HCPCS: 80048; 85014; 85018; 93005; U0003; U0005; 87635; 93010

== ENCOUNTER 2020-07-24 09:52 | Day surgery (SDC) | payer MEDICARE ==
[2020-07-23 08:48] VITALS: BMI 23.3
[2020-07-24] MEDS ORDERED: Fentanyl 100 MCG/2 ML VIAL ONE (11:55)
[2020-07-24] MEDS ORDERED: Lidocaine 1% w/Epinephrine 1:100K 20 ML VIAL ONE (12:00)
[2020-07-24] MEDS ORDERED: Succinylcholine 200 MG/10 ml SYRINGE FS ONE (12:58)
[2020-07-24] MEDS ORDERED: Lidocaine 1% PF 5 ML VIAL ONE (12:58)
[2020-07-24] MEDS ORDERED: PROPOFOL 200 MG/20 ML VIAL ONE (12:58)
[2020-07-24] MEDS ORDERED: Ondansetron PF 4 MG/2 ML Vial ONE (12:58)
[2020-07-24] MEDS ORDERED: PHENYLEPHRINE-NS 100 MCG/ML 10 ML SYRINGE ONE (12:58)
[2020-07-24] MEDS ORDERED: Dexamethasone 20 MG/5 ML VIAL ONE (12:58)
[2020-07-24] MEDS ORDERED: Metoclopramide HCl 10 MG/2 ML VIAL ONE ×2 (16:24→16:35)
== END 2020-07-24 17:30 | disposition home or self-care (01) ==
LOC: SDC 09:52
PROVIDERS: ATTEND Specialist
PROC: 0GTH0ZZ Resection of Right Thyroid Gland Lobe, Open Approach (ICD-10-PCS; principal; 2020-07-24)
DX: E06.3 Autoimmune thyroiditis (principal); E04.2 Nontoxic multinodular goiter; J98.8 Other specified respiratory disorders; I10 Essential (primary) hypertension; Z79.899 Other long term (current) drug therapy; Z88.2 Allergy status to sulfonamides; Z88.8 Allergy status to other drugs, medicaments and biological substances
CPT/HCPCS: 88307; 88331; 88334; J1100; J2405; J2704; J2765; J3010

== ENCOUNTER 2020-11-03 08:21 | Outpatient (CLI) | payer MEDICARE | END 2020-11-03 08:22 | disposition home or self-care (01) | LOC: NM 08:21 | PROVIDERS: ATTEND Specialist | DX: E21.3 Hyperparathyroidism, unspecified (principal) | CPT/HCPCS: 78072; A9500 ==

== ENCOUNTER 2021-03-09 10:03 | Outpatient (CLI) | payer MEDICARE | END 2021-03-09 10:04 | disposition home or self-care (01) | LOC: BICULT 10:03 | PROVIDERS: ATTEND Family Medicine | DX: N18.4 Chronic kidney disease, stage 4 (severe) (principal); R93.421 Abnormal radiologic findings on diagnostic imaging of right kidney | CPT/HCPCS: 76770; 93975 ==

== ENCOUNTER 2021-08-25 09:06 | Outpatient (CLI) | payer MEDICARE | END 2021-08-25 09:07 | disposition home or self-care (01) | LOC: BICMAMMO 09:06 | PROVIDERS: ATTEND Family Medicine | DX: Z12.31 Encounter for screening mammogram for malignant neoplasm of breast (principal); M54.41 Lumbago with sciatica, right side; M25.551 Pain in right hip; M25.552 Pain in left hip; M47.816 Spondylosis without myelopathy or radiculopathy, lumbar region; M16.0 Bilateral primary osteoarthritis of hip | CPT/HCPCS: 72100; 77063; 77067 ==

== ENCOUNTER 2022-11-17 08:15 | Outpatient (CLI) | payer MEDICARE | END 2022-11-17 08:16 | disposition home or self-care (01) | LOC: BICMAMMO 08:15 | PROVIDERS: ATTEND Family Medicine | DX: Z12.31 Encounter for screening mammogram for malignant neoplasm of breast (principal); Z13.820 Encounter for screening for osteoporosis; N95.9 Unspecified menopausal and perimenopausal disorder; M85.88 Other specified disorders of bone density and structure, other site; M81.0 Age-related osteoporosis without current pathological fracture | CPT/HCPCS: 77063; 77067; 77080 ==

== ENCOUNTER 2023-04-22 11:59 | Outpatient (CLI) | payer MEDICARE | END 2023-04-22 12:00 | disposition home or self-care (01) | LOC: RAD 11:59 | PROVIDERS: ATTEND Family Medicine | DX: M79.674 Pain in right toe(s) (principal); M19.071 Primary osteoarthritis, right ankle and foot ==

== ENCOUNTER 2023-11-21 08:59 | Outpatient (CLI) | payer MEDICARE | END 2023-11-21 09:00 | disposition home or self-care (01) | LOC: BICMAMMO 08:59 | PROVIDERS: ATTEND Family Medicine | DX: Z12.31 Encounter for screening mammogram for malignant neoplasm of breast (principal) | CPT/HCPCS: 77063; 77067 ==

== ENCOUNTER 2024-06-18 07:32 | Emergency (ER) | payer MEDICARE ==
[2024-06-18 08:29] LABS: #Basophils 0.06 10x3/uL (0.0-0.2); %Basophils 0.8 % (0.0-1.0); %Eosinophils 1.8 % (0.0-10.0); %Lymphocytes 19.3 % (21.0-51.0); %Monocytes 10.1 % (0.0-10.0); %Neutrophils 67.7 % (42.0-75.0); Hematocrit 33.9 % (36.0-47.0); Hemoglobin 10.8 g/dL (12.0-16.0); Mean Corpuscular HGB CONC 31.9 g/dL (32.0-36.0); Mean Corpuscular Volume 91.1 fL (78.0-98.0); Platelet Count 269 10x3/uL (130-400); RBC Distribution Width 13.4 % (11.5-14.5); Red Blood Cell (RBC) Count 3.72 mill/uL (4.20-5.40)
[2024-06-18 08:44] LABS: ALT (SGPT) 15 U/L (Less than 34); AST (SGOT) 26 U/L (11-34); Albumin 3.8 g/dL (3.1-4.5); Alkaline Phosphatase 109 U/L (40-110); Anion Gap 17 mmol/L (10-20); BUN (Urea Nitrogen) 26 mg/dL (9.8-20.1); Bilirubin, Total 0.3 mg/dL (0.3-1.2); Calc. Creatinine Clearance 0 mL/min (70-130); Calcium 9.2 mg/dL (7.8-10.44); Carbon Dioxide 18 mmol/L (23-31); Chloride 110 mmol/L (98-107); Estimated GFR 17; Globulin 4.3 g/dL (2.4-3.5); Glucose 111 mg/dL (83-110); Lipase 50 U/L (8-78); Potassium 4.9 mmol/L (3.5-5.1); Protein, Total 8.1 g/dL (5.8-8.1); Sodium 140 mmol/L (136-145)
[2024-06-18 09:41] LABS: Bilirubin Negative (Negative); Blood, Urine Negative (Negative); CAUTI Indications for Culture Pelvic or flank pain; Glucose, Urine (Dipstick) Normal (Negative); Ketone, Urine Negative (Negative); Leukocyte 25 Leu/uL (Negative); Nitrite Negative (Negative); Protein, Urine (Dipstick) 100 mg/dL (Neg-Trace); RBC/HPF 0-3 HPF (0-3); Specific Gravity, Urine 1.013 (1.002-1.036); Squamous Epithelial 21-50 HPF (0-3); Urobilinogen Normal mg/dL (Less than 2); pH, Urine 6.5 (5.0-9.0)
[2024-06-18 09:45] LABS: Bacteria/HPF 1+ HPF (None Seen); Clarity Cloudy (Clear)
[2024-06-18 09:46] LABS: Urine Culture Reflex No No
== END 2024-06-18 12:41 | disposition home or self-care (01) ==
LOC: ERS 07:32
DX: R11.2 Nausea with vomiting, unspecified (principal); D64.9 Anemia, unspecified; I12.9 Hypertensive chronic kidney disease with stage 1 through stage 4 chronic kidney disease, or unspecified chronic kidney disease; N18.9 Chronic kidney disease, unspecified; R82.71 Bacteriuria; R91.1 Solitary pulmonary nodule; G43.909 Migraine, unspecified, not intractable, without status migrainosus; I48.91 Unspecified atrial fibrillation; B96.81 Helicobacter pylori [H. pylori] as the cause of diseases classified elsewhere; Z79.899 Other long term (current) drug therapy
CPT/HCPCS: 36415; 71046; 80053; 81001; 83690; 83880; 85025; 87086; 96360; 96361

== ENCOUNTER 2025-01-08 14:28 | Emergency (ER) | payer MEDICARE, SELFPAY ==
[2025-01-08 15:51] LABS: CAUTI Indications for Culture Pelvic or flank pain; Glucose, Urine (Dipstick) Normal (Negative); Leukocyte 250 Leu/uL (Negative); Protein, Urine (Dipstick) 100 mg/dL (Neg-Trace); RBC/HPF 0-3 HPF (0-3); Specific Gravity, Urine 1.016 (1.002-1.036)
[2025-01-08 15:55] LABS: Bacteria/HPF 1+ HPF (None Seen)
[2025-01-08 15:57] LABS: Urine Culture Reflex Yes Yes
[2025-01-08 17:08] LABS: #Basophils 0.05 10x3/uL (0.0-0.2); #Eosinophils 0.09 10x3/uL (0.0-0.7); #Monocytes 0.62 10x3/uL (0.11-0.59); #Neutrophils 4.64 10x3/uL (1.40-6.50); %Basophils 0.7 % (0.0-1.0); %Eosinophils 1.3 % (0.0-10.0); %Lymphocytes 21.7 % (21.0-51.0); %Monocytes 9.0 % (0.0-10.0); %Neutrophils 67.0 % (42.0-75.0); Hematocrit 35.2 % (36.0-47.0); Hemoglobin 11.0 g/dL (12.0-16.0); Mean Corpuscular Hemoglobin 28.5 pg (27.0-31.0); Mean Corpuscular Volume 91.2 fL (78.0-98.0); Platelet Count 249 10x3/uL (130-400); Red Blood Cell (RBC) Count 3.86 mill/uL (4.20-5.40); White Blood Cell (WBC) Count 6.92 10x3/uL (4.8-10.8)
[2025-01-08 17:19] LABS: ALT (SGPT) 10 U/L (Less than 34); AST (SGOT) 29 U/L (11-34); Albumin 3.7 g/dL (3.1-4.5); Alkaline Phosphatase 102 U/L (40-110); Anion Gap 16 mmol/L (10-20); BUN (Urea Nitrogen) 29 mg/dL (9.8-20.1); Bilirubin, Total 0.1 mg/dL (0.3-1.2); Calc. Creatinine Clearance 0 mL/min (70-130); Calcium 8.8 mg/dL (7.8-10.44); Carbon Dioxide 18 mmol/L (23-31); Chloride 110 mmol/L (98-107); Globulin 3.5 g/dL (2.4-3.5); Glucose 86 mg/dL (83-110); Lipase 55 U/L (8-78); Potassium 4.5 mmol/L (3.5-5.1); Sodium 139 mmol/L (136-145)
[2025-01-08] MEDS ORDERED: Ondansetron PF 4 MG/2 ML Vial ONE (17:34)
[2025-01-08] MEDS ORDERED: cefTRIAXone (ROCEPHIN) 1 GM VIAL ONE (17:35)
== END 2025-01-08 19:51 | disposition home or self-care (01) ==
LOC: ERS 14:28
DX: N39.0 Urinary tract infection, site not specified (principal); I10 Essential (primary) hypertension; Z79.899 Other long term (current) drug therapy
CPT/HCPCS: 71045; 74176; 80053; 81001; 83690; 83880; 84484; 85025; 87086; 96372; J0696; J2270; J2405